=== PATIENT | male | born 1965 | race American Indian/Alaskan Native ===

== ENCOUNTER 2016-11-12 19:57 | Inpatient (IN) | payer OTHER ==
[2016-11-12] MEDS ORDERED: Sodium Chloride 0.9% 1,000 ML IV STA (20:34)
--- NOTE | 2016-11-12 20:38 | ED PDOC ---
Arrival/HPI - General Historian: Patient - History of Present Illness Time/Duration: Prior to Arrival, 1/2 hour Symptom Onset: Sudden - General Chief Complaint: GI Problem Time Seen by Provider: 11/12/16 20:02 - History of Present Illness Narrative History of Present Illness (Text): 11/12/16 20:33 This is a 50 year old male with no significant PMHx presenting after a bout of hematemesis. Patient reports that this has never happened before. Patient states that he used to experience dyspepsia many years ago which has since calmed down; however, he recently started eating hot sauce in his food again. Patient denies abdominal pain, changes in stool character, dark stools. Patient is not currently nauseous. Patient states that his vomit contained food with blood mixed in. Patient was recently told by his physician that he was anemic. Patient denies dizziness, lightheadedness, weakness. PMD: Dr. Hampton ([facility]) Past Medical History - Provider Review Nursing Documentation Reviewed: Yes - Cardiac Hx Cardiac Disorders: No - Pulmonary Hx Respiratory Disorders: No - Neurological Hx Neurological Disorder: No - HEENT Hx HEENT Disorder: No - Renal Hx Renal Disorder: No - Endocrine/Metabolic Hx Endocrine Disorders: No - Hematological/Oncological Hx Blood Disorders: No - Integumentary Hx Dermatological Disorder: No - Musculoskeletal/Rheumatological Hx Musculoskeletal Disorders: Yes - Gastrointestinal Hx Gastrointestinal Disorders: No - Genitourinary/Gynecological Hx Genitourinary Disorders: No - Psychiatric Hx Psychophysiologic Disorder: No Hx Substance Use: Yes (marijuana) - Surgical History Hx Orthopedic Surgery: Yes (left hip has metal) Family/Social History - Physician Review Nursing Documentation Reviewed: Yes Family/Social History: No Known Family HX Smoking Status: Light Smoker < 10 Cigarettes Daily Hx Alcohol Use: No Hx Substance Use: Yes (marijuana) Allergies/Home Meds Allergies/Adverse Reactions: Allergies aspirin Allergy (Verified 11/12/16 20:04) ANAPHYLAXIS Home Medications: Home Meds Medication Instructions Recorded Confirmed oxyCODONE/Acetaminophen [Percocet 1 tab PO PRN PRN 11/12/16 11/12/16 5/325 mg Tab] Review of Systems - Review of Systems Constitutional: Normal Eyes: Normal ENT: Normal Respiratory: Normal Cardiovascular: Normal Gastrointestinal: Vomiting, Hematemesis. absent: Abdominal Pain, Stool Changes , Constipation, Diarrhea, Nausea, Hematochezia Genitourinary Male: Normal Musculoskeletal: Normal Skin: Normal Neurological: Normal. absent: Dizziness, Focal Weakness, Other (lightheadedness ) Endocrine: Normal Hemo/Lymphatic: Normal Psychiatric: Normal Physical Exam Vital Signs Reviewed: Yes Temperature: Afebrile Blood Pressure: Normal Pulse: Regular Respiratory Rate: Normal Appearance: Positive for: Well-Appearing Pain Distress: None Mental Status: Positive for: Alert and Oriented X 3 - Systems Exam Head: Present: Atraumatic, Normocephalic Pupils: Present: PERRL Extroacular Muscles: Present: EOMI Mouth: Present: Moist Mucous Membranes Neck: Present: Normal Range of Motion Respiratory/Chest: Present: Clear to Auscultation, Good Air Exchange. No: Accessory Muscle Use Cardiovascular: Present: Regular Rate and Rhythm, Normal S1, S2 Abdomen: Present: Normal Bowel Sounds. No: Tenderness, Distention Rectal: Present: Occult Blood, Melena. No: Hemorrhoids, Fissures Upper Extremity: Present: Normal Inspection, NORMAL PULSES. No: Edema Lower Extremity: Present: Normal Inspection, NORMAL PULSES. No: Edema, CALF TENDERNESS Neurological: Present: GCS=15, CN II-XII Intact Skin: Present: Warm, Dry, Normal Color. No: Rashes Psychiatric: Present: Alert, Oriented x 3 Medical Decision Making ED Course and Treatment: 11/12/16 20:43 CBC, CMP, Coag, Amylase, Lipase, EKG, Cardiac ISO, UA, Type and screen Zofran 4 mg IV Protonix 40 mg IV NS 1L bolus EKG showed NSR at rate 92 11/12/16 22:26 Patient consented for blood and 2 units of PRBCs ordered. Patient admitted to hospitalist service with Dr. Tamayo on for GI consult. (Jeff Daley) Impression: In agreement with resident note, which includes further HPI details. Patient was seen and evaluated with resident, came up with plan and treatment together. Pt, with no significant past medical history, presented for 1 episode of hematemesis. melana in emergency room. pt anemia. transfision intiiated. discussed with gi fellow covering dr tamayo. request npo for possible endoscopy. stabel for tele. Plan: -- EKG -- Labs, cardiac enzymes, amylase, lipase, blood type and screen -- Urinalysis -- IV fluids -- Zofran -- Protonix -- Reassess and disposition (Jefferson Novoa) - Lab Interpretations Lab Results: 11/12/16 21:00 11/12/16 21:00 Lab Results 11/12/16 21:00: Iron 58, TIBC 292, % Saturation 20 11/12/16 21:00: Blood Type O POSITIVE, Antibody Screen Negative, Crossmatch See Detail, BBK History Checked No verified bt 11/12/16 21:00: Sodium 141, Potassium 3.6, Chloride 105, Carbon Dioxide 29, Anion Gap 11, BUN 17, Creatinine 0.8, Est GFR ( Amer) > 60, Est GFR (Non- Af Amer) > 60, Random Glucose 103, Calcium 8.4, Total Bilirubin 0.2, AST 21, ALT 21, Alkaline Phosphatase 51, Lactate Dehydrogenase 393, Total Creatine Kinase 41, Troponin I < 0.01, Total Protein 5.9, Albumin 3.3, Globulin 2.6, Albumin/Globulin Ratio 1.3, Amylase 49, Lipase 47 11/12/16 21:00: PT 11.3, INR 1.05, APTT 24.4 11/12/16 21:00: WBC 13.3 H, RBC 3.21 L, Hgb 9.3 L, Hct 29.1 L, MCV 90.7, MCH 29.0, MCHC 32.0, RDW 13.3, Plt Count 293, MPV 8.1, Gran % 76.1 H, Lymph % (Auto ) 17.9 L, Long % (Auto) 5.3, Eos % (Auto) 0.5 L, Baso % (Auto) 0.2, Gran # 10.10 H, Lymph # 2.4, Long # 0.7 H, Eos # 0.1, Baso # 0.03 - Medication Orders Current Medication Orders: Pantoprazole Sodium (Protonix 40mg Ivpb) 40 mg in 100 mls @ 20 mls/hr IVPB .Q5H DAVID Last Admin: 11/13/16 02:57 Dose: Sodium Chloride (Sodium Chloride 0.9%) 1,000 mls @ 100 mls/hr IV .Q10H DAVID Last Admin: 11/13/16 00:02 Dose: 100 mls/hr Ondansetron HCl (Zofran Inj) 4 mg IVP Q4H PRN PRN Reason: Nausea/Vomiting Oxycodone/Acetaminophen (Percocet 5/325 Mg Tab) 1 tab PO Q4H PRN PRN Reason: Pain, moderate (4-7) Stop: 11/15/16 23:29 Last Admin: 11/12/16 23:43 Dose: 1 tab Re-Assess: BOB Pain Assessment Document 11/13/16 00:43 [facility] (Rec: 11/13/16 04:19 [facility] [id number]) Pain Reassessment Is this a pain reassessment? Yes Presence of Pain Presence of Pain No Pantoprazole Sodium (Protonix Inj) 40 mg IVP Q12 DAVID Last Admin: 11/12/16 23:23 Dose: 40 mg Discontinued Medications Sodium Chloride (Sodium Chloride 0.9%) 1,000 mls @ 999 mls/hr IV .Q1H1M STA Stop: 11/12/16 21:34 Last Admin: 11/12/16 21:07 Dose: 999 mls/hr Ondansetron HCl (Zofran Inj) 4 mg IVP STAT STA Stop: 11/12/16 20:35 Last Admin: 11/12/16 21:07 Dose: 4 mg Pantoprazole Sodium (Protonix Inj) 40 mg IVP STAT STA Stop: 11/12/16 20:35 Last Admin: 11/12/16 21:07 Dose: 40 mg - PA / QUALITY NURSE / Resident Statement /DO has reviewed & agrees with the documentation as recorded. Disposition/Present on Arrival - Present on Arrival Any Indicators Present on Arrival: No History of DVT/PE: No History of Uncontrolled Diabetes: No Urinary Catheter: No History of Decub. Ulcer: No History Surgical Site Infection Following: None - Disposition Have Diagnosis and Disposition been Completed?: Yes Disposition Time: 22:15 - Disposition Diagnosis: GI bleed Disposition: HOSPITALIZED Patient Problems: Current Active Problems Problem Status Onset GI bleed Acute Condition: STABLE
[2016-11-12 21:21] LABS: BASO # 0.03 K/mm3 (0.0-2.0); BASO % 0.2 % (0.0-3.0); EOS # 0.1 (0.0-0.7); EOS % 0.5 % (1.5-5.0); GRAN # 10.1 (1.4-6.5); GRAN % 76.1 % (50.0-68.0); HEMATOCRIT 29.1 % (42.0-52.0); LYMPH # 2.4 (1.2-3.4); LYMPH % 17.9 % (22.0-35.0); MEAN CELL VOLUME 90.7 fl (80.0-105.0); MEAN PLATELET VOLUME 8.1 fl (7.0-11.0); MONO # 0.7 (0.1-0.6); MONO % 5.3 % (1.0-6.0); RED CELL DISTRIBUTION WIDTH 13.3 % (11.5-14.5); WHITE BLOOD COUNT 13.3 10^3/ul (4.5-11.0)
[2016-11-12 21:27] LABS: ALB/GLOB RATIO 1.3 (1.1-1.8); ALKALINE PHOSPHATASE 51 U/L (38-126); ALT/SGPT 21 U/L (7-56); AMYLASE 49 U/L (35-125); AST/SGOT 21 U/L (17-59); BILIRUBIN,TOTAL 0.2 mg/dL (0.2-1.3); BLOOD UREA NITROGEN 17 mg/dL (7-21); CALCIUM 8.4 mg/dL (8.4-10.5); CARBON DIOXIDE 29 mmol/L (21-33); CHLORIDE 105 mmol/L (98-107); GFR AFRICAN-AMERICAN > 60; GLUCOSE,RANDOM 103 mg/dL (70-110); LIPASE 47 U/L (23-300); POTASSIUM 3.6 mmol/L (3.6-5.0); SODIUM 141 mmol/L (132-148); TOTAL PROTEIN 5.9 g/dL (5.8-8.3)
[2016-11-12 21:29] LABS: INR 1.05 (0.93-1.08); PARTIAL THROMBOPLASTIN TIME 24.4 Seconds (23.7-30.8)
[2016-11-12 21:42] LABS: TROPONIN I < 0.01 ng/mL
[2016-11-12 22:34] LABS: IRON 58 ug/dL (45-180)
--- NOTE | 2016-11-12 23:19 | CP.PCM.HP ---
<ROBBLAMAR - Last Filed: 11/12/16 23:10> History of Present Illness - History of Present Illness History of Present Illness: Lamar Potts, PGY1, H&P for Dr. Monterroso: CC: hematemesis x1 HPI: 50 M with no significant PMH presents for hematemesis x1. He had the episode this afternoon, 2 hours after eating his regular meal (german rice and beans), vomited food and some bright red blood, denies associated nausea, abdominal pain, rectal bleeding, change in bowel habits, constipation/diarrhea, dyspepsia, dizziness, lightheadedness, dizziness. Pt c/o some mild diaphoresis with the episode, + dark brown stools for the past few days. In ED, pt afebrile , HR 89, hemodynamically stable, leukocytosis 13.3, hgb 9.3 (unknown baseline), mcv 90.7, nrml lipase, rectal exam showed + stool guaic, received zofran 4 mg IVx1, protonix 40 mg IVx1, 1L NS bolus, transfusing 2 units prbcs. Currently, pt denies any nausea, vomiting, further episodes of hematemesis, cp, sob, diaphroesis, palpitations, cough, wheezing, urinary symptoms, leg swelling. Meds: omeprazole, percocet for L hip pain PMD: Dr Hampton (visited last week) PMH: Denies PSH: L sided hip surgery- [place] [facility] [place] All: ASA (eye swelling) FH: Mother, , heart blockage Father, HTN SH: lives with son. Mario. Smokes 6 cigg/day x 22 years. Smokes marijuana occasionally. Denies alcohol use. Present on Admission - Present on Admission Any Indicators Present on Admission: No History of DVT/PE: No History of Uncontrolled Diabetes: No Urinary Catheter: No Decubitus Ulcer Present: No History Surgical Site Infection Following: None Review of Systems - Review of Systems All systems: reviewed and no additional remarkable complaints except Review of Systems: as per hpi Past Patient History - Past Social History Smoking Status: Light Smoker < 10 Cigarettes Daily - CARDIAC Hx Cardiac Disorders: No - PULMONARY Hx Respiratory Disorders: No - NEUROLOGICAL Hx Neurological Disorder: No - HEENT Hx HEENT Problems: No - RENAL Hx Chronic Kidney Disease: No - ENDOCRINE/METABOLIC Hx Endocrine Disorders: No - HEMATOLOGICAL/ONCOLOGICAL Hx Blood Disorders: No - INTEGUMENTARY Hx Dermatological Problems: No - MUSCULOSKELETAL/RHEUMATOLOGICAL Hx Musculoskeletal Disorders: Yes - GASTROINTESTINAL Hx Gastrointestinal Disorders: No - GENITOURINARY/GYNECOLOGICAL Hx Genitourinary Disorders: No - PSYCHIATRIC Hx Psychophysiologic Disorder: No Hx Substance Use: Yes (marijuana) - SURGICAL HISTORY Hx Orthopedic Surgery: Yes (left hip has metal) Meds Allergies/Adverse Reactions: Allergies Allergy/AdvReac Type Severity Reaction Status Date / Time aspirin Allergy ANAPHYLAXIS Verified 11/12/16 20:04 Physical Exam - Constitutional Appears: Non-toxic, No Acute Distress, Older Than Stated Age - Head Exam Head Exam: ATRAUMATIC, NORMOCEPHALIC - Eye Exam Eye Exam: EOMI, PERRL. absent: Conjunctival injection, Periorbital swelling, Scleral icterus Pupil Exam: NORMAL ACCOMODATION, PERRL. absent: Irregular, Unequal Additional comments: no conjunctival pallor - ENT Exam ENT Exam: Mucous Membranes Moist, Normal Oropharynx - Neck Exam Neck exam: Positive for: Normal Inspection. Negative for: Lymphadenopathy, Tenderness, Thyromegaly - Respiratory Exam Respiratory Exam: Decreased Breath Sounds, NORMAL BREATHING PATTERN. absent: Accessory Muscle Use, Rales, Rhonchi, Wheezes - Cardiovascular Exam Cardiovascular Exam: RRR, +S1, +S2. absent: Tachycardia, JVD, Systolic Murmur - GI/Abdominal Exam GI & Abdominal Exam: Distended, Normal Bowel Sounds, Soft. absent: Guarding, Organomegaly, Rebound, Rigid, Tenderness - Rectal Exam Rectal Exam: Black Stool, NORMAL INSPECTION. absent: Hemorrhoids, Fecal Impaction Additional comments: Good external anal sphincter tone, no discharge/masses/induration. + dark black stool on exam. - Extremities Exam Extremities exam: Positive for: normal capillary refill, normal inspection, pedal pulses present. Negative for: calf tenderness, pedal edema Additional comments: no palmor pallor - Back Exam Back exam: absent: CVA tenderness (L), CVA tenderness (R), vertebral tenderness - Neurological Exam Neurological exam: Alert, CN II-XII Intact, Oriented x3, Reflexes Normal - Psychiatric Exam Psychiatric exam: Normal Mood - Skin Skin Exam: Dry, Warm Results - Vital Signs Recent Vital Signs: Last Vital Signs Temp 98 F 11/12/16 20:00 Pulse 92 H 11/12/16 22:34 Resp 18 09/07/17 22:34 BP 138/71 11/12/16 22:34 Pulse Ox 100 11/12/16 22:34 - Labs Result Diagrams: 11/12/16 21:00 11/12/16 21:00 Assessment & Plan - Assessment and Plan (Free Text) Assessment: 50M with no PMH presents for GI bleed, anemia, leukocytosis. Plan: GI bleed: - NPO, IVF, Protonix, GI c/s - Zofran - Stool guaic + on rectal exam - GI c/s, f/u recs. will likely go for endoscopy - Hgb 9.3 (unknown baseline), MCV 90.7, pt diagnosed with anemia a week ago with PMD Dr Hampton. - denies weakness, sob, fatigue. C/o 1 episode of hematemesis this afternoon and dark brown stools for past couple of days. - f/u anemia workup Decreased breath sounds: - f/u CXR. denies sob, cough, f/c, wheezing, lung disease history. + smoking hx 6 cigg/d x 22 years. Leukocytosis: - denies f/c. F/u blood and urine cultures, UA. Procal. Chronic L hip pain: - C/w home percocet DVT ppx: SCDs GI PPX: Protonix Discussed with Dr. Loc Potts, PGY1 - Date & Time Date: 11/13/16 Time: 01:00 <Dina Monterroso - Last Filed: 11/13/16 06:45> Results - Vital Signs Recent Vital Signs: Last Vital Signs Temp 98.5 F 11/13/16 06:20 Pulse 88 11/13/16 06:20 Resp 20 11/13/16 06:20 BP 118/64 11/13/16 06:20 Pulse Ox 99 11/13/16 06:00 - Labs Result Diagrams: 11/12/16 21:00 11/12/16 21:00 Labs: Laboratory Results - last 24 hr 11/12/16 22:12 Blood Type Confirm O POSITIVE
[2016-11-12] MEDS: Oxycodone/Acetaminophen 5/325 mg Tab PO PRN (23:43)
[2016-11-13] MEDS: Pantoprazole 40mg/100ml IVPB 40 MG/100 ML BAG IVPB SCH ×5 (00:02→21:47)
[2016-11-13] MEDS: Sodium Chloride 0.9% 1,000 ML IV SCH ×3 (00:02→12:25)
[2016-11-13] MEDS: Morphine 2 mg/ml ISec IVP PRN ×2 (04:49→12:23)
[2016-11-13 08:26] LABS: PH,URINE 5.5 (4.7-8.0); URINE BILIRUBIN NEGATIVE (NEGATIVE); URINE BLOOD NEGATIVE (NEGATIVE); URINE GLUCOSE (UA) NEGATIVE (NEGATIVE); URINE KETONE NEGATIVE (NEGATIVE); URINE LEUKOCYTE ESTERASE SMALL Leu/uL (NEGATIVE); URINE PROTEIN TRACE mg/dL (<30 mg/dL); URINE UROBILINOGEN 0.2 E.U./dL (<1 E.U./dL)
[2016-11-13 08:27] LABS: URINE APPEARANCE SL CLOUDY (CLEAR); URINE COLOR YELLOW (YELLOW)
--- NOTE | 2016-11-13 08:36 | CP.PCM.CON ---
<Melanie Feliz - Last Filed: 11/13/16 10:48> History of Present Illness - History of Present Illness History of Present Illness: Gastroenterology Fellow/PGY5 Consult Note 50 year old male with history of bowel obstruction with NGT decompression 2-3 months ago in [place] and chronic left hip pain on Percocet presenting with vomiting blood and black stool. Patient notes sudden onset of nausea, cold chills followed by vomiting a large volume of food and bright red blood and having a black stool. Notes he felt well all week prior to this episode. Denies fever, chills, sweats, abdominal pain, diarrhea, constipation, hematochezia, or unintentional weight loss. Denies NSAID use. No prior EGD or colonoscopy. Family-denies stomach cancer or colon cancer Social- 6 cigarettes/day x 22 years, denies alcohol and illicit drug use Surgery- left hip ORIF 2-3 years ago Review of Systems - Review of Systems Review of Systems: 12-point review of systems negative except for as above Past Patient History - Past Social History Smoking Status: Light Smoker < 10 Cigarettes Daily - CARDIAC Hx Cardiac Disorders: No - PULMONARY Hx Respiratory Disorders: No - NEUROLOGICAL Hx Neurological Disorder: No - HEENT Hx HEENT Problems: No - RENAL Hx Chronic Kidney Disease: No - ENDOCRINE/METABOLIC Hx Endocrine Disorders: No - HEMATOLOGICAL/ONCOLOGICAL Hx Blood Disorders: No - INTEGUMENTARY Hx Dermatological Problems: No - MUSCULOSKELETAL/RHEUMATOLOGICAL Hx Falls: No - GASTROINTESTINAL Hx Gastrointestinal Disorders: No - GENITOURINARY/GYNECOLOGICAL Hx Genitourinary Disorders: No - PSYCHIATRIC Hx Substance Use: No - SURGICAL HISTORY Hx Orthopedic Surgery: Yes (Left hip surgery) Meds Allergies/Adverse Reactions: Allergies Allergy/AdvReac Type Severity Reaction Status Date / Time aspirin Allergy ANAPHYLAXIS Verified 11/12/16 20:04 - Medications Medications: Current Medications Sodium Chloride (Sodium Chloride 0.9%) 1,000 mls @ 100 mls/hr IV .Q10H DAVID Last Admin: 11/13/16 00:02 Dose: 100 mls/hr Morphine Sulfate (Morphine) 2 mg IVP Q4H PRN PRN Reason: Pain, moderate (4-7) Last Admin: 11/13/16 04:49 Dose: 2 mg Ondansetron HCl (Zofran Inj) 4 mg IVP Q4H PRN PRN Reason: Nausea/Vomiting Oxycodone/Acetaminophen (Percocet 5/325 Mg Tab) 1 tab PO Q4H PRN PRN Reason: Pain, moderate (4-7) Stop: 11/15/16 23:29 Last Admin: 11/12/16 23:43 Dose: 1 tab Pantoprazole Sodium (Protonix Inj) 40 mg IVP Q12 DAVID Last Admin: 11/12/16 23:23 Dose: 40 mg Physical Exam - Constitutional Appears: Non-toxic, No Acute Distress - Head Exam Head Exam: ATRAUMATIC, NORMOCEPHALIC - Eye Exam Eye Exam: EOMI, PERRL Pupil Exam: PERRL. absent: Miosis, Mydriatic - ENT Exam ENT Exam: Mucous Membranes Moist, Normal Oropharynx - Neck Exam Neck exam: Positive for: Full Rom, Normal Inspection - Respiratory Exam Respiratory Exam: Clear to Auscultation Bilateral. absent: Rales, Rhonchi, Wheezes - Cardiovascular Exam Cardiovascular Exam: RRR, +S1, +S2. absent: Gallop, Rubs - GI/Abdominal Exam GI & Abdominal Exam: Normal Bowel Sounds. absent: Distended, Firm, Guarding, Organomegaly, Rebound, Rigid, Tenderness - Rectal Exam Rectal Exam: Black Stool - Extremities Exam Extremities exam: Positive for: normal inspection. Negative for: pedal edema - Back Exam Back exam: NORMAL INSPECTION - Neurological Exam Neurological exam: Alert, Oriented x3 - Psychiatric Exam Psychiatric exam: Normal Affect, Normal Mood - Skin Skin Exam: Dry, Intact, Normal Color, Warm Results - Vital Signs Recent Vital Signs: Last Vital Signs Temp 98.5 F 11/13/16 06:20 Pulse 77 11/13/16 08:15 Resp 20 11/13/16 06:20 BP 123/63 11/13/16 08:15 Pulse Ox 99 11/13/16 06:00 - Labs Result Diagrams: 11/12/16 21:00 11/12/16 21:00 Labs: Laboratory Results - last 24 hr 11/12/16 11/13/16 22:12 08:00 Urine Color Yellow Urine Appearance Sl cloudy Urine pH 5.5 Ur Specific [place] 1.025 Urine Protein Trace H Urine Glucose (UA) Negative Urine Ketones Negative Urine Blood Negative Urine Nitrate Negative Urine Bilirubin Negative Urine Urobilinogen 0.2 Ur Leukocyte Esterase Small H Blood Type Confirm O POSITIVE Assessment & Plan - Assessment and Plan (Free Text) Assessment: 50 year old male with history of bowel obstruction with NGT decompression 2-3 months ago in [place] and chronic left hip pain on Percocet presenting with vomiting blood and black stool. Active treatment of suspected Upper GI bleed. No prior EGD or colonoscopy. Plan: >NPO >EGD today >received 1 unit pRBC >no further episodes of overt GI blood loss >continue PPI BID >further recommendations after procedure <Onel Hernandez - Last Filed: 11/13/16 10:52> Meds - Medications Medications: Current Medications Sodium Chloride (Sodium Chloride 0.9%) 1,000 mls @ 100 mls/hr IV .Q10H DAVID Last Admin: 11/13/16 00:02 Dose: 100 mls/hr Pantoprazole Sodium (Protonix 40mg Ivpb) 40 mg in 100 mls @ 20 mls/hr IVPB .Q5H DAIVD Sodium Chloride (Sodium Chloride 0.9%) 1,000 mls @ 100 mls/hr IV .Q10H DAVID Morphine Sulfate (Morphine) 2 mg IVP Q4H PRN PRN Reason: Pain, moderate (4-7) Last Admin: 11/13/16 04:49 Dose: 2 mg Ondansetron HCl (Zofran Inj) 4 mg IVP Q4H PRN PRN Reason: Nausea/Vomiting Oxycodone/Acetaminophen (Percocet 5/325 Mg Tab) 1 tab PO Q4H PRN PRN Reason: Pain, moderate (4-7) Stop: 11/15/16 23:29 Last Admin: 11/12/16 23:43 Dose: 1 tab Results - Vital Signs Recent Vital Signs: Last Vital Signs Temp 98.6 F 11/13/16 09:54 Pulse 75 11/13/16 09:54 Resp 17 11/13/16 09:54 BP 112/70 11/13/16 09:54 Pulse Ox 100 11/13/16 09:54 - Labs Result Diagrams: 11/13/16 09:25 11/12/16 21:00 Labs: Laboratory Results - last 24 hr 11/12/16 11/13/16 11/13/16 22:12 08:00 09:25 WBC 7.5 D RBC 3.11 L Hgb 9.0 L Hct 27.8 L MCV 89.4 MCH 28.9 MCHC 32.4 RDW 13.5 Plt Count 259 MPV 8.1 Gran % 59.9 Lymph % (Auto) 32.4 [place] % (Auto) 6.2 H Eos % (Auto) 1.2 L Baso % (Auto) 0.3 Gran # 4.51 Lymph # 2.4 [place] # 0.5 Eos # 0.1 Baso # 0.02 Urine Color Yellow Urine Appearance Sl cloudy Urine pH 5.5 Ur Specific [place] 1.025 Urine Protein Trace H Urine Glucose (UA) Negative Urine Ketones Negative Urine Blood Negative Urine Nitrate Negative Urine Bilirubin Negative Urine Urobilinogen 0.2 Ur Leukocyte Esterase Small H Urine RBC Negative Urine WBC 10 - 15 Ur Epithelial Cells 3 - 4 Urine Other Mucus Blood Type Confirm O POSITIVE Attending/Attestation - Attestation I have personally seen and examined this patient.: Yes I have fully participated in the care of the patient.: Yes I have reviewed all pertinent clinical information: Yes Notes (Text): 11/13/16 10:49 I have seen and examined patient with GI fellow. Agree with above documentation with the following additions. In brief, this is a 50 year old male with history of chronic hip pain on percocet who presents to hospital with complaint of hematemesis which occurred yesterday at home while he was watching television. He felt fatigued and weak for the past 7 days but denies abdominal pain, fever/chills, weight loss, or rectal bleeding. He does report dark colored stool over the past day. He denies NSAID use, no prior endoscopic evaluation. Chronic hip pain Hematemesis - unclear etiology Anemia - NPO - H/H stable, no recurrent vomiting noted in hospital, continue to monitor - Anti-emetic therapy PRN - Plan for EGD evaluation to rule out peptic ulcer disease, esophagitis, underlying malignancy - Will continue to monitor patient clinical course and make further recommendations following endoscopic procedure
[2016-11-13 08:40] LABS: URINE RBC NEGATIVE /hpf (0-2)
[2016-11-13 09:32] LABS: BASO # 0.02 K/mm3 (0.0-2.0); BASO % 0.3 % (0.0-3.0); EOS # 0.1 (0.0-0.7); EOS % 1.2 % (1.5-5.0); GRAN # 4.51 (1.4-6.5); GRAN % 59.9 % (50.0-68.0); HEMATOCRIT 27.8 % (42.0-52.0); LYMPH # 2.4 (1.2-3.4); LYMPH % 32.4 % (22.0-35.0); MEAN CELL VOLUME 89.4 fl (80.0-105.0); MEAN CORPUSCULAR HEMOGLOBIN 28.9 pg (25.0-35.0); MEAN CORPUSCULAR HGB CONC 32.4 g/dl (31.0-37.0); MEAN PLATELET VOLUME 8.1 fl (7.0-11.0); MONO # 0.5 (0.1-0.6); MONO % 6.2 % (1.0-6.0); RED CELL DISTRIBUTION WIDTH 13.5 % (11.5-14.5); WHITE BLOOD COUNT 7.5 10^3/ul (4.5-11.0)
[2016-11-13] MEDS ORDERED: Propofol 10 mg/ml Inj (20 ML) ONE ×3 (09:54→10:17)
[2016-11-13 11:10] LABS: ALB/GLOB RATIO 1.2 (1.1-1.8); ALKALINE PHOSPHATASE 49 U/L (38-126); ALT/SGPT 27 U/L (7-56); AST/SGOT 32 U/L (17-59); BILIRUBIN,TOTAL 0.4 mg/dL (0.2-1.3); BLOOD UREA NITROGEN 14 mg/dL (7-21); CALCIUM 8.4 mg/dL (8.4-10.5); CARBON DIOXIDE 26 mmol/L (21-33); CHLORIDE 106 mmol/L (98-107); GFR AFRICAN-AMERICAN > 60; GLUCOSE,RANDOM 85 mg/dL (70-110); SODIUM 138 mmol/L (132-148); TOTAL PROTEIN 5.5 g/dL (5.8-8.3)
--- NOTE | 2016-11-13 12:06 | RAD ---
HISTORY: decreased breath sounds COMPARISON: None. FINDINGS: LUNGS: No active pulmonary disease. PLEURA: No significant pleural effusion identified, no pneumothorax apparent. CARDIOVASCULAR: Normal. OSSEOUS STRUCTURES: No significant abnormalities. VISUALIZED UPPER ABDOMEN: Normal. OTHER FINDINGS: None. IMPRESSION: No active disease.
[2016-11-13 13:33] LABS: FOLATE 9.6 ng/mL
--- NOTE | 2016-11-13 14:08 | CP.PCM.PN ---
<Jersey Rodriges - Last Filed: 11/13/16 14:20> Subjective - Date & Time of Evaluation Date of Evaluation: 11/13/16 Time of Evaluation: 10:05 - Subjective Subjective: This patient was seen and examined at bedside. The patient was was placed on NPO and had a EGD done by GI today. The patient reports one bowel movement and denies any blood present. The patient denies any nausea, vomiting, chest pain, shortness of breath, lightheadedness, dizziness, changes in vision, or any other complaints. Objective - Vital Signs/Intake and Output Vital Signs (last 24 hours): Temp Pulse Resp BP Pulse Ox 97.9 F 76 20 121/66 100 11/13/16 12:00 11/13/16 12:00 11/13/16 12:00 11/13/16 12:00 11/13/16 11:30 Intake and Output: 11/13/16 11/13/16 06:59 18:59 Intake Total 1380 Balance 1380 - Medications Medications: Current Medications Sodium Chloride (Sodium Chloride 0.9%) 1,000 mls @ 100 mls/hr IV .Q10H [facility] Last Admin: 11/13/16 12:24 Dose: 100 mls/hr Pantoprazole Sodium (Protonix 40mg Ivpb) 40 mg in 100 mls @ 20 mls/hr IVPB .Q5H [facility] Last Admin: 11/13/16 12:24 Dose: 20 mls/hr Sodium Chloride (Sodium Chloride 0.9%) 1,000 mls @ 100 mls/hr IV .Q10H [facility] Last Admin: 11/13/16 12:25 Dose: Not Given Morphine Sulfate (Morphine) 2 mg IVP Q4H PRN PRN Reason: Pain, moderate (4-7) Last Admin: 11/13/16 12:23 Dose: 2 mg Ondansetron HCl (Zofran Inj) 4 mg IVP Q4H PRN PRN Reason: Nausea/Vomiting Oxycodone/Acetaminophen (Percocet 5/325 Mg Tab) 1 tab PO Q4H PRN PRN Reason: Pain, moderate (4-7) Stop: 11/15/16 23:29 Last Admin: 11/12/16 23:43 Dose: 1 tab - Labs Labs: 11/13/16 09:25 11/13/16 07:24 PT 11.3 Seconds (9.9-11.8) 11/12/16 21:00 INR 1.05 (0.93-1.08) 11/12/16 21:00 APTT 24.4 Seconds (23.7-30.8) 11/12/16 21:00 - Head Exam Head Exam: ATRAUMATIC, NORMAL INSPECTION, NORMOCEPHALIC - Eye Exam Eye Exam: EOMI, Normal appearance, PERRL Pupil Exam: NORMAL ACCOMODATION, PERRL. absent: Irregular - ENT Exam ENT Exam: Mucous Membranes Moist - Neck Exam Neck Exam: Normal Inspection - Respiratory Exam Respiratory Exam: Clear to Ausculation Bilateral, NORMAL BREATHING PATTERN - Cardiovascular Exam Cardiovascular Exam: REGULAR RHYTHM, RRR, +S1, +S2. absent: Rubs - GI/Abdominal Exam GI & Abdominal Exam: Soft, Normal Bowel Sounds. absent: Rigid, Tenderness - Extremities Exam Extremities Exam: Full ROM, Normal Inspection - Back Exam Back Exam: NORMAL INSPECTION. absent: paraspinal tenderness - Psychiatric Exam Psychiatric exam: Normal Affect, Normal Mood - Skin Skin Exam: Dry, Intact, Normal Color. absent: Urticaria, Vesicles Assessment and Plan - Assessment and Plan (Free Text) Assessment: 50M with no PMH presents for GI bleed, anemia, leukocytosis. Plan: GI bleed: -Continue NPO, IVF, Protonix -Continue Zofran -Stool guaic + on rectal exam -GI did an EGD today which showed a duodenal bulb ulcer. Patient is to remain NPO due to high risk of re-bleed. Patient will be re-evaluated tomorrow. -GI consult appreciated considered -Hgb 9.0 (down from 9.3),pt diagnosed with anemia a week ago with PMD Dr Hampton. -Patient hemo-dynamically stable: BP 110/64, 72hr, 97.9F, 16 RR. Decreased breath sounds: - CXR showed no active pulmonary disease. - denies sob, cough, f/c, wheezing, lung disease history. + smoking hx 6 cigg/d x 22 years. -Couseled patient on marijuana use and strongly advised him to decrease his usage. Leukocytosis: - WBC count 7.5. Resolved. -Blood culture and urine culture pending. Chronic L hip pain: -C/w home percocet -Advised patient to find a Orthopedist and Pain Management doctor that takes Medicare and to follow up as an outpatient. DVT ppx: SCDs GI PPX: Protonix <Lina Monterroso B - Last Filed: 11/13/16 17:25> Objective - Vital Signs/Intake and Output Vital Signs (last 24 hours): Temp Pulse Resp BP Pulse Ox 97.9 F 75 20 121/66 100 11/13/16 12:00 11/13/16 14:00 11/13/16 12:00 11/13/16 12:00 11/13/16 11:30 Intake and Output: 11/13/16 11/13/16 06:59 18:59 Intake Total 1380 0 Output Total 200 Balance 1380 -200 - Medications Medications: Current Medications Sodium Chloride (Sodium Chloride 0.9%) 1,000 mls @ 100 mls/hr IV .Q10H [facility] Last Admin: 11/13/16 12:24 Dose: 100 mls/hr Pantoprazole Sodium (Protonix 40mg Ivpb) 40 mg in 100 mls @ 20 mls/hr IVPB .Q5H [facility] Last Admin: 11/13/16 16:58 Dose: 20 mls/hr Sodium Chloride (Sodium Chloride 0.9%) 1,000 mls @ 100 mls/hr IV .Q10H [facility] Last Admin: 11/13/16 12:25 Dose: Not Given Morphine Sulfate (Morphine) 2 mg IVP Q4H PRN PRN Reason: Pain, moderate (4-7) Last Admin: 11/13/16 12:23 Dose: 2 mg Ondansetron HCl (Zofran Inj) 4 mg IVP Q4H PRN PRN Reason: Nausea/Vomiting Oxycodone/Acetaminophen (Percocet 5/325 Mg Tab) 1 tab PO Q4H PRN PRN Reason: Pain, moderate (4-7) Stop: 11/15/16 23:29 Last Admin: 11/12/16 23:43 Dose: 1 tab - Labs Labs: 11/13/16 09:25 11/13/16 07:24 PT 11.3 Seconds (9.9-11.8) 11/12/16 21:00 INR 1.05 (0.93-1.08) 11/12/16 21:00 APTT 24.4 Seconds (23.7-30.8) 11/12/16 21:00 Attending/Attestation - Attestation I have personally seen and examined this patient.: Yes I have fully participated in the care of the patient.: Yes I have reviewed all pertinent clinical information, including history, physical exam and plan: Yes Notes (Text): I have seen and examined the patient with the resident. Agree with the above note with the following additions/ exceptions: Briefly this is 50 year old male with history of chronic hip pain on percocet who presented with one episode of [place] hematemesis which occurred 1 day ago at home and also has been having dark stools. FOBT was positive. Hb was 9 and is s/p 1unit of prbc. He underwent EGD and found to have duodenal bulb ulcer and also had visible non bleeding vessel s/p cautery and clip was placed. GI recommended to keep the patient NPO and start protonix drip. He will be closely monitored for bleeding. He was counselled regarding tobacco and marijuana use. He also complains of chronic hip pain. Advised to follow up with orthopedics and pain management as an outpatient. Upon discharge patient will follow up with PMD of choice. Dr Lina Monterroso
--- NOTE | 2016-11-13 21:01 | CARD ---
APPROVED REPORT EKG Measurement Heart [id number] <Conclusion> Normal sinus rhythm with sinus arrhythmia Nonspecific T wave abnormality Abnormal ECG
[2016-11-13] MEDS ORDERED: Oxycodone/Acetaminophen 5/325 mg Tab PO STA (22:55)
[2016-11-14] MEDS: Pantoprazole 40mg/100ml IVPB 40 MG/100 ML BAG IVPB SCH ×6 (04:03→22:07)
[2016-11-14 07:26] LABS: BASO # 0.01 K/mm3 (0.0-2.0); BASO % 0.1 % (0.0-3.0); EOS # 0.1 (0.0-0.7); EOS % 1.6 % (1.5-5.0); GRAN # 4.53 (1.4-6.5); GRAN % 61.7 % (50.0-68.0); HEMATOCRIT 27.6 % (42.0-52.0); LYMPH # 2.3 (1.2-3.4); LYMPH % 30.7 % (22.0-35.0); MEAN CELL VOLUME 89.3 fl (80.0-105.0); MEAN CORPUSCULAR HEMOGLOBIN 28.8 pg (25.0-35.0); MEAN CORPUSCULAR HGB CONC 32.2 g/dl (31.0-37.0); MEAN PLATELET VOLUME 8.3 fl (7.0-11.0); MONO # 0.4 (0.1-0.6); MONO % 5.9 % (1.0-6.0); RED CELL DISTRIBUTION WIDTH 13.8 % (11.5-14.5); WHITE BLOOD COUNT 7.3 10^3/ul (4.5-11.0)
--- NOTE | 2016-11-14 10:37 | CP.PCM.PN ---
Subjective - Date & Time of Evaluation Date of Evaluation: 11/14/16 Time of Evaluation: 10:33 - Subjective Subjective: Patient seen and examined, resting in bed comfortably. No acute events overnight. He describes ongoing right sided hip pain but denies abdominal pain , nausea, vomiting, diarrhea, fever/chills. He is hungry and asking for diet to be advanced. No bowel movements overnight. 12 point review of systems performed, negative aside from mentioned above. Objective - Vital Signs/Intake and Output Vital Signs (last 24 hours): Temp Pulse Resp BP Pulse Ox 98.7 F 77 19 96/50 L 94 L 11/14/16 06:00 11/14/16 06:00 11/14/16 06:00 11/14/16 06:00 11/14/16 06:00 Intake and Output: 11/14/16 11/14/16 06:59 18:59 Intake Total 2130 Output Total 600 Balance 1530 - Medications Medications: Current Medications Pantoprazole Sodium (Protonix 40mg Ivpb) 40 mg in 100 mls @ 20 mls/hr IVPB .Q5H [facility] Last Admin: 11/14/16 04:03 Dose: 20 mls/hr Sodium Chloride (Sodium Chloride 0.9%) 1,000 mls @ 150 mls/hr IV .Q6H40M [facility] Ondansetron HCl (Zofran Inj) 4 mg IVP Q4H PRN PRN Reason: Nausea/Vomiting Oxycodone/Acetaminophen (Percocet 5/325 Mg Tab) 1 tab PO Q4H PRN PRN Reason: Pain, moderate (4-7) Stop: 11/15/16 23:29 Last Admin: 11/12/16 23:43 Dose: 1 tab - Labs Labs: 11/14/16 07:00 11/13/16 07:24 PT 11.3 Seconds (9.9-11.8) 11/12/16 21:00 INR 1.05 (0.93-1.08) 11/12/16 21:00 APTT 24.4 Seconds (23.7-30.8) 11/12/16 21:00 - Constitutional Appears: Non-toxic, No Acute Distress - Head Exam Head Exam: NORMAL INSPECTION - Eye Exam Eye Exam: EOMI, Normal appearance - ENT Exam ENT Exam: Mucous Membranes Moist - Respiratory Exam Respiratory Exam: Clear to Ausculation Bilateral - Cardiovascular Exam Cardiovascular Exam: REGULAR RHYTHM, +S1, +S2 - GI/Abdominal Exam GI & Abdominal Exam: Soft, Normal Bowel Sounds Additional comments: non tender to palpation in four quadrants - Extremities Exam Extremities Exam: Normal Inspection - Skin Skin Exam: Dry, Intact, Normal Color, Warm Assessment and Plan - Assessment and Plan (Free Text) Assessment: Chronic hip pain Hematemesis, s/p EGD showing large duodenal bulb ulcer with visible vessel s/p epinephrine, BICAP, and endoclip placement Plan: - Clear liquid diet as tolerated - H/H stable, continue to monitor - Continue with IV PPI infusion for additional 24 hours - Obtain stool hpylori antigen - Would eventually suggest CT imaging with PO contrast for further evaluation given prior history of bowel obstruction
[2016-11-14] MEDS: Sodium Chloride 0.9% 1,000 ML IV SCH ×4 (11:23→21:30)
--- NOTE | 2016-11-14 11:53 | CP.PCM.PN ---
<ZahiraSumitBristol - Last Filed: 11/14/16 11:58> Subjective - Date & Time of Evaluation Date of Evaluation: 11/14/16 Time of Evaluation: 09:34 - Subjective Subjective: Patient was seen and examined at bedside. The patient reports being hungry and wanting to eat. The patient also reports the chronic left hip discomfort. The patient denies any bowel movement overnight. Patient denies any reports of hematemesis. The patient denies any fevers, chills, nausea, vomiting, chest pain, shortness of breath, lightheadedness, dizziness, pain upon urination, or any other complaints. Objective - Vital Signs/Intake and Output Vital Signs (last 24 hours): Temp Pulse Resp BP Pulse Ox 98.7 F 87 19 96/50 L 94 L 11/14/16 06:00 11/14/16 10:00 11/14/16 06:00 11/14/16 06:00 11/14/16 06:00 Intake and Output: 11/14/16 11/14/16 06:59 18:59 Intake Total 2130 Output Total 600 Balance 1530 - Medications Medications: Current Medications Pantoprazole Sodium (Protonix 40mg Ivpb) 40 mg in 100 mls @ 20 mls/hr IVPB .Q5H [facility] Last Admin: 11/14/16 11:20 Dose: 20 mls/hr Sodium Chloride (Sodium Chloride 0.9%) 1,000 mls @ 150 mls/hr IV .Q6H40M [facility] Last Admin: 11/14/16 11:23 Dose: 150 mls/hr Ondansetron HCl (Zofran Inj) 4 mg IVP Q4H PRN PRN Reason: Nausea/Vomiting Oxycodone/Acetaminophen (Percocet 5/325 Mg Tab) 1 tab PO Q4H PRN PRN Reason: Pain, moderate (4-7) Stop: 11/15/16 23:29 Last Admin: 11/12/16 23:43 Dose: 1 tab - Labs Labs: 11/14/16 07:00 11/13/16 07:24 PT 11.3 Seconds (9.9-11.8) 11/12/16 21:00 INR 1.05 (0.93-1.08) 11/12/16 21:00 APTT 24.4 Seconds (23.7-30.8) 11/12/16 21:00 - Head Exam Head Exam: ATRAUMATIC, NORMAL INSPECTION, NORMOCEPHALIC - Eye Exam Eye Exam: EOMI, Normal appearance, PERRL Pupil Exam: NORMAL ACCOMODATION, PERRL. absent: Irregular - ENT Exam ENT Exam: Mucous Membranes Moist, Normal Exam - Neck Exam Neck Exam: Full ROM, Normal Inspection - Respiratory Exam Respiratory Exam: Clear to Ausculation Bilateral, NORMAL BREATHING PATTERN. absent: Accessory Muscle Use, Chest Wall Tenderness, Prolonged Expiratory Phase - Cardiovascular Exam Cardiovascular Exam: REGULAR RHYTHM, RRR, +S1, +S2. absent: Gallop, Rubs - GI/Abdominal Exam GI & Abdominal Exam: Soft, Normal Bowel Sounds. absent: Rigid, Tenderness - Extremities Exam Extremities Exam: Full ROM, Normal Inspection - Back Exam Back Exam: NORMAL INSPECTION. absent: paraspinal tenderness - Neurological Exam Neurological Exam: Alert, Awake, CN II-XII Intact, Oriented x3 - Psychiatric Exam Psychiatric exam: Normal Affect, Normal Mood - Skin Skin Exam: Dry, Intact, Normal Color. absent: Pallor Assessment and Plan - Assessment and Plan (Free Text) Assessment: 50M with no PMH presents for GI bleed, anemia, leukocytosis. Plan: GI bleed: -Patient diet advanced to clear liquid diet. Will continue to advance as tolerated per GI consult. -Continue IVF, Protonix -Continue Zofran -Stool guaic + on rectal exam -GI did an EGD yesterday which showed a duodenal bulb ulcer. -GI consult appreciated considered -H.pylori stool antigen pending. -Hgb 8.9 (down from 9.0),pt diagnosed with anemia a week ago with PMD Dr Hampton. Will continue to monitor H/H with serial CBC's. -Patient hemo-dynamically stable: BP 110/64, 72hr, 97.9F, 16 RR. Decreased breath sounds: - CXR showed no active pulmonary disease. - denies sob, cough, f/c, wheezing, lung disease history. + smoking hx 6 cigg/d x 22 years. -Couseled patient on marijuana use and strongly advised him to decrease his usage. Leukocytosis: - WBC count normal. Resolved. -Blood culture: no growth after 24 hours and urine culture still pending. Chronic L hip pain: -C/w home percocet -Advised patient to find a Orthopedist and Pain Management doctor that takes Medicare and to follow up as an outpatient. DVT ppx: SCDs GI PPX: Protonix <Wilton Epps MD - Last Filed: 11/17/16 16:08> Objective - Vital Signs/Intake and Output Vital Signs (last 24 hours): Temp Pulse Resp BP Pulse Ox 98.5 F 68 17 95/53 L 98 11/15/16 12:00 11/15/16 14:00 11/15/16 12:00 11/15/16 12:00 11/15/16 06:00 - Labs Labs: 11/15/16 07:10 11/13/16 07:24 PT 11.3 Seconds (9.9-11.8) 11/12/16 21:00 INR 1.05 (0.93-1.08) 11/12/16 21:00 APTT 24.4 Seconds (23.7-30.8) 11/12/16 21:00 Attending/Attestation - Attestation I have personally seen and examined this patient.: Yes I have fully participated in the care of the patient.: Yes I have reviewed all pertinent clinical information, including history, physical exam and plan: Yes Notes (Text): 11/17/16 16:07 Patient was seen and examined with hospital medical biller. Agreed with resident assessment and plan. 50 yrs old male was admitted with hematemesis, s/p EGD showing large duodenal bulb ulcer with visible vessel s/p epinephrine, BICAP, and endoclip placement, will start on clear liquid diet and monitor hemoglobin and hematocrit. Management plan was discussed in detail with patient Education was provided.
[2016-11-14] MEDS: Oxycodone/Acetaminophen 5/325 mg Tab PO PRN ×3 (12:52→23:06)
[2016-11-14 13:21] LABS: BASO # 0.02 K/mm3 (0.0-2.0); BASO % 0.2 % (0.0-3.0); EOS # 0.1 (0.0-0.7); EOS % 0.9 % (1.5-5.0); GRAN # 5.91 (1.4-6.5); GRAN % 66.3 % (50.0-68.0); HEMATOCRIT 30.6 % (42.0-52.0); LYMPH # 2.5 (1.2-3.4); LYMPH % 28.4 % (22.0-35.0); MEAN CELL VOLUME 90.3 fl (80.0-105.0); MEAN CORPUSCULAR HEMOGLOBIN 29.2 pg (25.0-35.0); MEAN CORPUSCULAR HGB CONC 32.4 g/dl (31.0-37.0); MONO # 0.4 (0.1-0.6); MONO % 4.2 % (1.0-6.0); RED CELL DISTRIBUTION WIDTH 13.8 % (11.5-14.5); WHITE BLOOD COUNT 8.9 10^3/ul (4.5-11.0)
[2016-11-14 22:35] LABS: BASO # 0.03 K/mm3 (0.0-2.0); BASO % 0.4 % (0.0-3.0); EOS # 0.2 (0.0-0.7); EOS % 2.2 % (1.5-5.0); GRAN # 4.07 (1.4-6.5); HEMATOCRIT 26.2 % (42.0-52.0); LYMPH # 2.9 (1.2-3.4); LYMPH % 38.2 % (22.0-35.0); MEAN CELL VOLUME 89.4 fl (80.0-105.0); MEAN CORPUSCULAR HEMOGLOBIN 29.4 pg (25.0-35.0); MEAN CORPUSCULAR HGB CONC 32.8 g/dl (31.0-37.0); MEAN PLATELET VOLUME 7.9 fl (7.0-11.0); MONO # 0.5 (0.1-0.6); MONO % 6.2 % (1.0-6.0); RED CELL DISTRIBUTION WIDTH 13.8 % (11.5-14.5); WHITE BLOOD COUNT 7.7 10^3/ul (4.5-11.0)
[2016-11-15] MEDS: Pantoprazole 40mg/100ml IVPB 40 MG/100 ML BAG IVPB SCH (04:00)
[2016-11-15] MEDS: Oxycodone/Acetaminophen 5/325 mg Tab PO PRN ×3 (04:15→14:36)
[2016-11-15 06:32] VITALS: O2SAT 98
[2016-11-15 07:20] LABS: BASO # 0.03 K/mm3 (0.0-2.0); BASO % 0.4 % (0.0-3.0); EOS # 0.2 (0.0-0.7); GRAN # 4.4 (1.4-6.5); GRAN % 57.7 % (50.0-68.0); HEMATOCRIT 28.7 % (42.0-52.0); LYMPH # 2.6 (1.2-3.4); LYMPH % 34.1 % (22.0-35.0); MEAN CELL VOLUME 89.1 fl (80.0-105.0); MEAN CORPUSCULAR HEMOGLOBIN 29.2 pg (25.0-35.0); MEAN CORPUSCULAR HGB CONC 32.8 g/dl (31.0-37.0); MEAN PLATELET VOLUME 7.8 fl (7.0-11.0); MONO # 0.4 (0.1-0.6); MONO % 5.8 % (1.0-6.0); RED CELL DISTRIBUTION WIDTH 13.6 % (11.5-14.5); WHITE BLOOD COUNT 7.6 10^3/ul (4.5-11.0)
[2016-11-15] MEDS: Sodium Chloride 0.9% 1,000 ML IV SCH ×2 (07:30→10:59)
--- NOTE | 2016-11-15 08:15 | CP.PCM.PN ---
Subjective - Date & Time of Evaluation Date of Evaluation: 11/15/16 Time of Evaluation: 08:11 - Subjective Subjective: Patient seen and examined. No acute events overnight, resting in bed comfortably. No bowel movements over past 48 hours. He denies abdominal pain, nausea, vomiting, fever/chills. Tolerating PO liquids without difficulty. Complains of R sided hip pain. 12 point review of systems performed, negative aside from mentioned above. Objective - Vital Signs/Intake and Output Vital Signs (last 24 hours): Temp Pulse Resp BP Pulse Ox 97.7 F 78 18 129/82 98 11/15/16 06:00 11/15/16 06:00 11/15/16 06:00 11/15/16 06:00 11/15/16 06:00 Intake and Output: 11/15/16 11/15/16 06:59 18:59 Intake Total 680 Output Total 1400 Balance -720 - Medications Medications: Current Medications Sodium Chloride (Sodium Chloride 0.9%) 1,000 mls @ 150 mls/hr IV .Q6H40M [facility] Last Admin: 11/15/16 07:30 Dose: 150 mls/hr Ondansetron HCl (Zofran Inj) 4 mg IVP Q4H PRN PRN Reason: Nausea/Vomiting Oxycodone/Acetaminophen (Percocet 5/325 Mg Tab) 1 tab PO Q4H PRN PRN Reason: Pain, moderate (4-7) Stop: 11/15/16 23:29 Last Admin: 11/15/16 04:15 Dose: 1 tab Pantoprazole Sodium (Protonix Ec Tab) 40 mg PO 0600,1600 [facility] Sucralfate (Carafate Tab) 1 gm PO 0600,1600 [facility] - Labs Labs: 11/15/16 07:10 11/13/16 07:24 PT 11.3 Seconds (9.9-11.8) 11/12/16 21:00 INR 1.05 (0.93-1.08) 11/12/16 21:00 APTT 24.4 Seconds (23.7-30.8) 11/12/16 21:00 - Constitutional Appears: Non-toxic, No Acute Distress - Head Exam Head Exam: NORMAL INSPECTION - Eye Exam Eye Exam: EOMI, Normal appearance - ENT Exam ENT Exam: Mucous Membranes Moist - Respiratory Exam Respiratory Exam: Clear to Ausculation Bilateral - Cardiovascular Exam Cardiovascular Exam: REGULAR RHYTHM, +S1, +S2 - GI/Abdominal Exam GI & Abdominal Exam: Soft, Normal Bowel Sounds Additional comments: non tender to palpation in four quadrants - Extremities Exam Extremities Exam: Normal Inspection - Skin Skin Exam: Dry, Intact, Normal Color, Warm Assessment and Plan - Assessment and Plan (Free Text) Assessment: Chronic right hip pain Anemia, duodenal ulcer s/p endoscopic therapy with epinephrine, BICAP, and endoclip placement Plan: - H/H stable, patient has not required PRBC transfusion, continue to monitor - Continue with PPI and carafate regimen - Obtain stool Hpylori - Advance diet to soft as tolerated - Obtain CT imaging with PO contrast given duodenal ulcer and prior history of bowel obstruction in [place] - Patient requesting hospital discharge, ok from GI perspective if patient tolerating PO diet, he will require subsequent outpatient follow up.
[2016-11-15 15:08] VITALS: BP 95/53; RESP 17; TEMP 98.5
--- NOTE | 2016-11-15 15:09 | CT ---
PROCEDURE: CT Abdomen and Pelvis without intravenous contrast HISTORY: duodenal ulcer, h/o bowel obstruction COMPARISON: None. TECHNIQUE: Without contrast.. Contrast Dose: Radiation dose: Total exam DLP = 351 mGy-cm. This CT exam was performed using one or more of the following dose reduction techniques: Automated exposure control, adjustment of the mA and/or kV according to patient size, and/or use of iterative reconstruction technique. FINDINGS: LOWER THORAX: Unremarkable. LIVER: Unremarkable. No gross lesion or ductal dilatation. GALLBLADDER AND BILE DUCTS: Unremarkable. PANCREAS: Unremarkable. No gross lesion or ductal dilatation. SPLEEN: Unremarkable. ADRENALS: Unremarkable. No mass. KIDNEYS AND URETERS: Unremarkable. No hydronephrosis. No solid mass. VASCULATURE: Unremarkable. No aortic aneurysm. BOWEL: Unremarkable. No obstruction. No gross mural thickening. A surgical clip is seen in the transverse colon. APPENDIX: Unremarkable. Normal appendix. PERITONEUM: Unremarkable. No free fluid. No free air. LYMPH NODES: Unremarkable. No enlarged lymph nodes. BLADDER: Unremarkable. REPRODUCTIVE: Unremarkable. BONES: No acute fracture. OTHER FINDINGS: None. IMPRESSION: No acute findings
[2016-11-15] MEDS ORDERED: Pantoprazole 40 mg EC Tab PO SCH (16:00)
[2016-11-15 16:19] VITALS: PULSE 68
--- NOTE | 2016-11-15 16:44 | CP.PCM.DIS ---
<Jersey Rodriges - Last Filed: 11/15/16 16:47> Provider - Provider Date of Admission: 11/12/16 21:44 Attending physician: Isaura Tan MD Time Spent in preparation of Discharge (in minutes): 45 Hospital Course - Lab Results Lab Results: Micro Results 11/13/16 09:25 Blood-Venous Blood Culture - Preliminary NO GROWTH AFTER 48 HOURS 11/12/16 23:50 Blood-Venous Blood Culture - Preliminary NO GROWTH AFTER 48 HOURS Most Recent Lab Values WBC 7.6 10^3/ul (4.5-11.0) 11/15/16 07:10 RBC 3.22 10^6/uL (3.5-6.1) L 11/15/16 07:10 Hgb 9.4 g/dL (14.0-18.0) L 11/15/16 07:10 Hct 28.7 % (42.0-52.0) L 11/15/16 07:10 MCV 89.1 fl (80.0-105.0) 11/15/16 07:10 MCH 29.2 pg (25.0-35.0) 11/15/16 07:10 MCHC 32.8 g/dl (31.0-37.0) 11/15/16 07:10 RDW 13.6 % (11.5-14.5) 11/15/16 07:10 Plt Count 236 10^3/uL (120.0-450.0) 11/15/16 07:10 MPV 7.8 fl (7.0-11.0) 11/15/16 07:10 Gran % 57.7 % (50.0-68.0) 11/15/16 07:10 Lymph % (Auto) 34.1 % (22.0-35.0) 11/15/16 07:10 [place] % (Auto) 5.8 % (1.0-6.0) 11/15/16 07:10 Eos % (Auto) 2.0 % (1.5-5.0) 11/15/16 07:10 Baso % (Auto) 0.4 % (0.0-3.0) 11/15/16 07:10 Gran # 4.40 (1.4-6.5) 11/15/16 07:10 Lymph # 2.6 (1.2-3.4) 11/15/16 07:10 [place]ern # 0.4 (0.1-0.6) 11/15/16 07:10 Eos # 0.2 (0.0-0.7) 11/15/16 07:10 Baso # 0.03 K/mm3 (0.0-2.0) 11/15/16 07:10 PT 11.3 Seconds (9.9-11.8) 11/12/16 21:00 INR 1.05 (0.93-1.08) 11/12/16 21:00 APTT 24.4 Seconds (23.7-30.8) 11/12/16 21:00 Sodium 138 mmol/L (132-148) 11/13/16 07:24 Potassium 4.0 mmol/L (3.6-5.0) 11/13/16 07:24 Chloride 106 mmol/L (98-107) 11/13/16 07:24 Carbon Dioxide 26 mmol/L (21-33) 11/13/16 07:24 Anion Gap 10 (10-20) 11/13/16 07:24 BUN 14 mg/dL (7-21) 11/13/16 07:24 Creatinine 0.7 mg/dL (0.5-1.4) 11/13/16 07:24 Est GFR ( Amer) > 60 11/13/16 07:24 Est GFR (Non-Af Amer) > 60 11/13/16 07:24 Random Glucose 85 mg/dL (70-110) 11/13/16 07:24 Calcium 8.4 mg/dL (8.4-10.5) 11/13/16 07:24 Iron 58 ug/dL (45-180) 11/12/16 21:00 TIBC 292 ug/dL (261-462) 11/12/16 21:00 % Saturation 20 % (20-55) 11/12/16 21:00 Ferritin 37.5 ng/mL 11/12/16 21:00 Total Bilirubin 0.4 mg/dL (0.2-1.3) 11/13/16 07:24 AST 32 U/L (17-59) 11/13/16 07:24 ALT 27 U/L (7-56) 11/13/16 07:24 Alkaline Phosphatase 49 U/L (38-126) 11/13/16 07:24 Lactate Dehydrogenase 393 U/L (333-699) 11/12/16 21:00 Total Creatine Kinase 41 U/L (35-230) 11/12/16 21:00 Troponin I < 0.01 ng/mL 11/12/16 21:00 Total Protein 5.5 g/dL (5.8-8.3) L 11/13/16 07:24 Albumin 3.0 g/dL (3.0-4.8) 11/13/16 07:24 Globulin 2.5 gm/dL 11/13/16 07:24 Albumin/Globulin Ratio 1.2 (1.1-1.8) 11/13/16 07:24 Amylase 49 U/L (35-125) 11/12/16 21:00 Lipase 47 U/L (23-300) 11/12/16 21:00 Vitamin B12 316 pg/mL (239-931) 11/12/16 21:00 Folate 9.6 ng/mL 11/12/16 21:00 Procalcitonin < 0.05 NG/ML (0.19-0.49) L 11/12/16 23:50 Urine Color Yellow (YELLOW) 11/13/16 08:00 Urine Appearance Sl cloudy (CLEAR) 11/13/16 08:00 Urine pH 5.5 (4.7-8.0) 11/13/16 08:00 Ur Specific [place] 1.025 (1.005-1.035) 11/13/16 08:00 Urine Protein Trace mg/dL (<30 mg/dL) H 11/13/16 08:00 Urine Glucose (UA) Negative mg/dL (NEGATIVE) 11/13/16 08:00 Urine Ketones Negative mg/dL (NEGATIVE) 11/13/16 08:00 Urine Blood Negative (NEGATIVE) 11/13/16 08:00 Urine Nitrate Negative (NEGATIVE) 11/13/16 08:00 Urine Bilirubin Negative (NEGATIVE) 11/13/16 08:00 Urine Urobilinogen 0.2 E.U./dL (<1 E.U./dL) 11/13/16 08:00 Ur Leukocyte Esterase Small [place]/uL (NEGATIVE) H 11/13/16 08:00 Urine RBC Negative /hpf (0-2) 11/13/16 08:00 Urine WBC 10 - 15 /hpf (0-6) 11/13/16 08:00 Ur Epithelial Cells 3 - 4 /hpf (0-5) 11/13/16 08:00 Urine Other Mucus 11/13/16 08:00 Blood Type O POSITIVE 11/12/16 21:00 Blood Type Confirm O POSITIVE 11/12/16 22:12 Antibody Screen Negative 11/12/16 21:00 Crossmatch See Detail 11/12/16 21:00 BBK History Checked No verified bt 11/12/16 21:00 - Hospital Course Hospital Course: 50 M with no significant PMH presents for hematemesis x1. He had the episode this afternoon, 2 hours after eating his regular meal (armenian rice and beans), vomited food and some bright red blood, denies associated nausea, abdominal pain , rectal bleeding, change in bowel habits, constipation/diarrhea, dyspepsia, dizziness, lightheadedness, dizziness. Pt c/o some mild diaphoresis with the episode, + dark brown stools for the past few days. In ED, pt afebrile, HR 89, hemodynamically stable, leukocytosis 13.3, hgb 9.3 (unknown baseline), mcv 90.7 , nrml lipase, rectal exam showed + stool guaic, received zofran 4 mg IVx1, protonix 40 mg IVx1, 1L NS bolus, transfusing 2 units prbcs. Patient was seen by GI consult and had a EGD done which showed an duodenal bulb ulcer. The ulcer was clipped and the bleeding stopped. Patients diet was tolerated as clear and then as soft diet. The patient was discharged with a plan to follow up with PMD and GI doctor within one week of discharge. Discharge Exam - Head Exam Head Exam: NORMAL INSPECTION - Eye Exam Eye Exam: EOMI, Normal appearance, PERRL Pupil Exam: NORMAL ACCOMODATION, PERRL - ENT Exam ENT Exam: Mucous Membranes Moist - Respiratory Exam Respiratory Exam: Clear to PA & Lateral, NORMAL BREATHING PATTERN, UNREMARKABLE. absent: Rhonchi, Wheezes - Cardiovascular Exam Cardiovascular Exam: REGULAR RHYTHM, RRR, +S1, +S2. absent: Rubs - GI/Abdominal Exam GI & Abdominal Exam: Normal Bowel Sounds, Unremarkable. absent: Firm, Guarding - Back Exam Back exam: NORMAL INSPECTION. absent: paraspinal tenderness - Neurological Exam Neurological exam: Alert, Oriented x3 - Psychiatric Exam Psychiatric exam: Normal Affect, Normal Mood - Skin Skin Exam: Dry, Intact Discharge Plan - Discharge Medications Prescriptions: Pantoprazole [Protonix EC Tab] 40 mg PO 0600,1600 #60 ect Sucralfate [Carafate Tab] 1 gm PO 0600,1600 #60 tab - Follow Up Plan Condition: STABLE Disposition: HOME/ ROUTINE Instructions: Gastrointestinal Bleeding (DC), Heart Healthy Diet (DC), Blood Transfusion (DC), Anemia (DC) Additional Instructions: 1. Follow up with [facility] clinic or PMD DR. Memo Cano in 5 days. 2. Avoid smoking, alcohol and Pain medications/NSAID. 3. Continue protonix. 4. Follow up with GI Dr. Hernandez in 1 week. Referrals: Onel Hernandez MD [Staff Provider] - <Isaura Tan - Last Filed: 11/16/16 19:11> Provider - Provider Date of Admission: 11/12/16 21:44 Attending physician: Isaura Tan MD Hospital Course - Lab Results Lab Results: Micro Results 11/13/16 09:25 Blood-Venous Blood Culture - Preliminary NO GROWTH AFTER 3 DAYS 11/12/16 23:50 Blood-Venous Blood Culture - Preliminary NO GROWTH AFTER 3 DAYS Most Recent Lab Values WBC 7.6 10^3/ul (4.5-11.0) 11/15/16 07:10 RBC 3.22 10^6/uL (3.5-6.1) L 11/15/16 07:10 Hgb 9.4 g/dL (14.0-18.0) L 11/15/16 07:10 Hct 28.7 % (42.0-52.0) L 11/15/16 07:10 MCV 89.1 fl (80.0-105.0) 11/15/16 07:10 MCH 29.2 pg (25.0-35.0) 11/15/16 07:10 MCHC 32.8 g/dl (31.0-37.0) 11/15/16 07:10 RDW 13.6 % (11.5-14.5) 11/15/16 07:10 Plt Count 236 10^3/uL (120.0-450.0) 11/15/16 07:10 MPV 7.8 fl (7.0-11.0) 11/15/16 07:10 Gran % 57.7 % (50.0-68.0) 11/15/16 07:10 Lymph % (Auto) 34.1 % (22.0-35.0) 11/15/16 07:10 [place] % (Auto) 5.8 % (1.0-6.0) 11/15/16 07:10 Eos % (Auto) 2.0 % (1.5-5.0) 11/15/16 07:10 Baso % (Auto) 0.4 % (0.0-3.0) 11/15/16 07:10 Gran # 4.40 (1.4-6.5) 11/15/16 07:10 Lymph # 2.6 (1.2-3.4) 11/15/16 07:10 [place] # 0.4 (0.1-0.6) 11/15/16 07:10 Eos # 0.2 (0.0-0.7) 11/15/16 07:10 Baso # 0.03 K/mm3 (0.0-2.0) 11/15/16 07:10 PT 11.3 Seconds (9.9-11.8) 11/12/16 21:00 INR 1.05 (0.93-1.08) 11/12/16 21:00 APTT 24.4 Seconds (23.7-30.8) 11/12/16 21:00 Sodium 138 mmol/L (132-148) 11/13/16 07:24 Potassium 4.0 mmol/L (3.6-5.0) 11/13/16 07:24 Chloride 106 mmol/L (98-107) 11/13/16 07:24 Carbon Dioxide 26 mmol/L (21-33) 11/13/16 07:24 Anion Gap 10 (10-20) 11/13/16 07:24 BUN 14 mg/dL (7-21) 11/13/16 07:24 Creatinine 0.7 mg/dL (0.5-1.4) 11/13/16 07:24 Est GFR ( Amer) > 60 11/13/16 07:24 Est GFR (Non-Af Amer) > 60 11/13/16 07:24 Random Glucose 85 mg/dL (70-110) 11/13/16 07:24 Calcium 8.4 mg/dL (8.4-10.5) 11/13/16 07:24 Iron 58 ug/dL (45-180) 11/12/16 21:00 TIBC 292 ug/dL (261-462) 11/12/16 21:00 % Saturation 20 % (20-55) 11/12/16 21:00 Ferritin 37.5 ng/mL 11/12/16 21:00 Total Bilirubin 0.4 mg/dL (0.2-1.3) 11/13/16 07:24 AST 32 U/L (17-59) 11/13/16 07:24 ALT 27 U/L (7-56) 11/13/16 07:24 Alkaline Phosphatase 49 U/L (38-126) 11/13/16 07:24 Lactate Dehydrogenase 393 U/L (333-699) 11/12/16 21:00 Total Creatine Kinase 41 U/L (35-230) 11/12/16 21:00 Troponin I < 0.01 ng/mL 11/12/16 21:00 Total Protein 5.5 g/dL (5.8-8.3) L 11/13/16 07:24 Albumin 3.0 g/dL (3.0-4.8) 11/13/16 07:24 Globulin 2.5 gm/dL 11/13/16 07:24 Albumin/Globulin Ratio 1.2 (1.1-1.8) 11/13/16 07:24 Amylase 49 U/L (35-125) 11/12/16 21:00 Lipase 47 U/L (23-300) 11/12/16 21:00 Vitamin B12 316 pg/mL (239-931) 11/12/16 21:00 Folate 9.6 ng/mL 11/12/16 21:00 Procalcitonin < 0.05 NG/ML (0.19-0.49) L 11/12/16 23:50 Urine Color Yellow (YELLOW) 11/13/16 08:00 Urine Appearance Sl cloudy (CLEAR) 11/13/16 08:00 Urine pH 5.5 (4.7-8.0) 11/13/16 08:00 Ur Specific [place] 1.025 (1.005-1.035) 11/13/16 08:00 Urine Protein Trace mg/dL (<30 mg/dL) H 11/13/16 08:00 Urine Glucose (UA) Negative mg/dL (NEGATIVE) 11/13/16 08:00 Urine Ketones Negative mg/dL (NEGATIVE) 11/13/16 08:00 Urine Blood Negative (NEGATIVE) 11/13/16 08:00 Urine Nitrate Negative (NEGATIVE) 11/13/16 08:00 Urine Bilirubin Negative (NEGATIVE) 11/13/16 08:00 Urine Urobilinogen 0.2 E.U./dL (<1 E.U./dL) 11/13/16 08:00 Ur Leukocyte Esterase Small [place]/uL (NEGATIVE) H 11/13/16 08:00 Urine RBC Negative /hpf (0-2) 11/13/16 08:00 Urine WBC 10 - 15 /hpf (0-6) 11/13/16 08:00 Ur Epithelial Cells 3 - 4 /hpf (0-5) 11/13/16 08:00 Urine Other Mucus 11/13/16 08:00 Blood Type O POSITIVE 11/12/16 21:00 Blood Type Confirm O POSITIVE 11/12/16 22:12 Antibody Screen Negative 11/12/16 21:00 Crossmatch See Detail 11/12/16 21:00 BBK History Checked No verified bt 11/12/16 21:00 Attending/Attestation - Attestation I have personally seen and examined this patient.: Yes I have fully participated in the care of the patient.: Yes I have reviewed all pertinent clinical information, including history, physical exam and plan: Yes Notes (Text): 11/16/16 19:08 Attending note ; Patient seen and examined with the resident . Patient is 50 year old male with history of chronic hip pain on percocet who presented with one episode of clinton hematemesis. FOBT was positive. Hb was 9 and is s/p 1unit of prbc. He underwent EGD and found to have duodenal bulb ulcer and also had visible non bleeding vessel s/p cautery and clip was placed. Treated with IV protonix drip. Currently no active bleeding. Started on clear liquid diet. Advance to soft diet today. Patient was evaluated by GI. Tolerating diet well. No abdominal pain. He was counselled regarding tobacco and marijuana use. He also complains of chronic hip pain. Advised to follow up with orthopedics and pain management as an outpatient. Upon discharge patient will follow up with PMD of choice. Diagnosis; GI bleed Duodenal ulcer status post cautery Tobacco abuse Chronic hip pain/opiate use
== END 2016-11-15 17:50 | disposition home or self-care (01) | DRG 175 ==
LOC: ED 19:57 → ERH 21:44 → 2RNO 11-13 00:15
PROVIDERS: ADMIT Internal Medicine; ATTEND Internal Medicine
PROC: 30233N1 Transfusion of Nonautologous Red Blood Cells into Peripheral Vein, Percutaneous Approach (ICD-10-PCS; 2016-11-13)
PROC: 0D598ZZ Destruction of Duodenum, Via Natural or Artificial Opening Endoscopic (ICD-10-PCS; principal; 2016-11-13 12:45)
PROC: 3E0G8GC Introduction of Other Therapeutic Substance into Upper GI, Via Natural or Artificial Opening Endoscopic (ICD-10-PCS; 2016-11-13 12:45)
PROC: 0DJ08ZZ Inspection of Upper Intestinal Tract, Via Natural or Artificial Opening Endoscopic (ICD-10-PCS; 2016-11-13 12:45)
DX: K92.0 Hematemesis (principal); K26.9 Duodenal ulcer, unspecified as acute or chronic, without hemorrhage or perforation; D64.9 Anemia, unspecified; F12.90 Cannabis use, unspecified, uncomplicated; M25.552 Pain in left hip; G89.29 Other chronic pain; D72.829 Elevated white blood cell count, unspecified; Z72.0 Tobacco use; Z88.6 Allergy status to analgesic agent

== ENCOUNTER 2016-12-14 07:08 | Emergency (ER) | payer MEDICAID ==
[2016-12-14 07:20] VITALS: TEMP 97.9
--- NOTE | 2016-12-14 07:53 | ED PDOC ---
Arrival/HPI - General Historian: Patient - History of Present Illness Time/Duration: < week Symptom Course: Unchanged Activities at Onset: Rest Context: Home - General Chief Complaint: Shortness Of Breath Time Seen by Provider: 12/14/16 07:12 - History of Present Illness Narrative History of Present Illness (Text): 12/14/16 07:50 51yo M PMH bowel obstruction with recent hospitalization for gastric ulcers who presents with hiccups and nausea/vomiting x2 days. pt denies any new foods, travel history, medication changes, sick contacts or recent illness, fevers/ chills, chest pain, cough. pt also has L hip pain from ortho surgery (chronic, for 2 years), for which he is on Lyrica and Tramadol. last BM was 2 days ago, but that is regular for him. PMD: currently doesn't have PMD till Jan 06 due to insurance. In past, has seen Dr. Hampton ([facility]) Past Medical History - Provider Review Nursing Documentation Reviewed: Yes - Past History Past History: Non-Contributing - Reproductive Currently : No - Past Medical History Past Medical History: No Previous - Cardiac Hx Cardiac Disorders: No - Pulmonary Hx Respiratory Disorders: No - Neurological Hx Neurological Disorder: No - HEENT Hx HEENT Disorder: No - Renal Hx Renal Disorder: No - Endocrine/Metabolic Hx Endocrine Disorders: No - Hematological/Oncological Hx Blood Disorders: No - Integumentary Hx Dermatological Disorder: No - Musculoskeletal/Rheumatological Hx Back Pain: Yes (chronic) Hx Falls: No - Gastrointestinal Hx Gastrointestinal Disorders: Yes - Genitourinary/Gynecological Hx Genitourinary Disorders: No - Psychiatric Hx Psychophysiologic Disorder: No Hx Substance Use: No - Surgical History Hx Orthopedic Surgery: Yes (Left hip surgery) - Anesthesia Hx Anesthesia Reactions: No Hx Malignant Hyperthermia: No Family/Social History - Physician Review Nursing Documentation Reviewed: Yes Family/Social History: No Known Family HX Smoking Status: Light Smoker < 10 Cigarettes Daily Hx Alcohol Use: No Hx Substance Use: No Allergies/Home Meds Allergies/Adverse Reactions: Allergies aspirin Allergy (Verified 11/12/16 20:04) ANAPHYLAXIS Home Medications: Home Meds Medication Instructions Recorded Confirmed oxyCODONE/Acetaminophen [Percocet 1 tab PO PRN PRN 11/12/16 11/12/16 5/325 mg Tab] Review of Systems - Physician Review All systems were reviewed & negative as marked: Yes - Review of Systems Constitutional: absent: Fevers Respiratory: absent: Cough, Wheezing Cardiovascular: absent: Chest Pain Gastrointestinal: Nausea, Vomiting. absent: Abdominal Pain, Constipation, Diarrhea, Hematochezia, Hematemesis Physical Exam Vital Signs Reviewed: Yes Appearance: Positive for: Well-Appearing Pain Distress: None Mental Status: Positive for: Alert and Oriented X 3 - Systems Exam Head: Present: Atraumatic, Normocephalic Pupils: Present: PERRL Extroacular Muscles: Present: EOMI Conjunctiva: Present: Normal Mouth: Present: Moist Mucous Membranes Neck: Present: Normal Range of Motion Respiratory/Chest: Present: Clear to Auscultation, Good Air Exchange. No: Respiratory Distress, Accessory Muscle Use, Wheezes Cardiovascular: Present: Regular Rate and Rhythm, Normal S1, S2. No: Murmurs Abdomen: Present: Tenderness (epigastric), Normal Bowel Sounds. No: Distention , Peritoneal Signs, Guarding Back: Present: Normal Inspection. No: CVA Tenderness Upper Extremity: Present: Normal Inspection, Normal ROM Lower Extremity: Present: Normal Inspection. No: Edema, CALF TENDERNESS, Pk' s Sign Neurological: Present: CN II-XII Intact, Speech Normal Skin: Present: Warm, Dry Psychiatric: Present: Alert, Oriented x 3 Vital Signs Temp Pulse Resp BP Pulse Ox 12/14/16 11:50 91 H 18 123/68 100 12/14/16 10:35 78 18 122/76 98 12/14/16 09:59 84 18 115/68 98 12/14/16 09:01 95 H 18 144/89 100 12/14/16 07:16 97.9 F 90 20 132/93 H 100 12/14/16 07:08 20 100 Medical Decision Making Re-evaluation Time: 12:31 Reassessment Condition: Re-examined, Improved - Lab Interpretations I have reviewed the lab results: Yes - RAD Interpretation Touring Production Manager: Radiologist - EKG Interpretation Interpreted by ED Physician: Yes Type: 12 lead EKG ED Course and Treatment: 12/14/16 07:58 Impression: 51yo M presenting with n/v and epigastric pain likely 2/2 gastritis Differential Diagnosis included but are not limited to: gastritis vs pancreatitis vs atypical chest pain Plan: - Reassess and disposition - CXR and abd XR - EKG - Labs - Lipase - Reglan - Pepcid Progress Notes: EKG: Ordered, reviewed, and independently interpreted the EKG. Rate : 94 BPM Rhythm : NSR Interpretation : No ST-segment elevations or depressions, no T-wave inversions, normal intervals. 12/14/16 08:06 Chart review from last admission's EGD showed a duodenal non-bleeding ulcer. 12/14/16 09:20 Reassessment: improved symptoms, but remains with hiccups. chlorpromazine 25mg IM ordered 12/14/16 12:18 Reassessment: pt feeling much better. denies any pain, n/v, and stating hiccups have improved. Chest XR Report Date : 12/14/2016 11:37:16 Creator : Roxi Hinojosa MD FINDINGS: LUNGS: The lungs are clear. PLEURA: No significant pleural effusion identified, no pneumothorax apparent. CARDIOVASCULAR: Normal. OSSEOUS STRUCTURES: No significant abnormalities. VISUALIZED UPPER ABDOMEN: Normal. OTHER FINDINGS: None. IMPRESSION: No active pulmonary disease. Abdominal XR Report Date : 12/14/2016 11:38:04 Creator : Roix Hinojosa MD FINDINGS: BOWEL: There is moderate amount of stool in the colon. The bowel gas pattern is nonspecific. BONES: Normal. OTHER FINDINGS: None. IMPRESSION: Nonspecific bowel gas pattern. 12/14/16 12:31 pt educated on follow up with PMD or establishing care at [facility] and taking medication as prescribed. (Angel Riddle) 12/14/16 10:42 Hawk Graves is a 51 year old male who presents to the emergency department with nausea, vomiting, and epigastric pain. The patient was seen and examined with resident. Came up with treatment and disposition plan with resident. Abdomen soft and not tender. ND. BSx4. Patient improved with medications. Labs reviewed. He will follow up with PMD or establish care with [facility] clinic. (Reynaldo Bailey) - Lab Interpretations Lab Results: 12/14/16 07:35 12/14/16 07:35 Lab Results 12/14/16 07:35: Sodium 144, Potassium 3.9, Chloride 102, Carbon Dioxide 28, Anion Gap 18, BUN 10, Creatinine 0.8, Est GFR ( Amer) > 60, Est GFR (Non- Af Amer) > 60, Random Glucose 123 H, Calcium 10.2, Phosphorus 3.1, Magnesium 2.1 , Total Bilirubin 0.7, AST 19, ALT 34, Alkaline Phosphatase 82, Total Protein 7.9, Albumin 4.8, Globulin 3.1, Albumin/Globulin Ratio 1.5, Lipase 67 12/14/16 07:35: WBC 11.6 H D, RBC 4.41, Hgb 12.7 L D, Hct 39.4 L, MCV 89.3, MCH 28.8, MCHC 32.2, RDW 13.2, Plt Count 309, MPV 8.6, Gran % 74.8 H, Lymph % (Auto ) 18.6 L, [place] % (Auto) 5.9, Eos % (Auto) 0.4 L, Baso % (Auto) 0.3, Gran # 8.68 H, Lymph # 2.2, [place] # 0.7 H, Eos # 0.1, Baso # 0.03 - RAD Interpretation Radiology Orders: 12/14/16 07:30 CHEST PORTABLE [RAD] Stat ABDOMEN PORTABLE 1 VIEW [RAD] Stat - Medication Orders Current Medication Orders: Discontinued Medications Acetaminophen (Tylenol 325mg Tab) 325 mg PO STAT STA Stop: 12/14/16 08:32 Last Admin: 12/14/16 08:58 Dose: 325 mg MAR Pain/Vitals Document 12/14/16 08:58 OK (Rec: 12/14/16 08:59 [id number] Pain Reassessment Is This A Pain ReAssessment? Yes Sleep Is patient sleeping during reassessment? No Presence of Pain Presence of Pain Yes Pain Scale Used Pain Scale Used Numeric Location Left, Right or Bilateral Left Pain Location Body Site Hip Description Intermittent Intensity 8 Scale Used Numeric Baclofen (Lioresal) 10 mg PO STAT STA Stop: 12/14/16 11:20 Last Admin: 12/14/16 12:24 Dose: Chlorpromazine (Thorazine) 25 mg IM STAT STA PRN Reason: Protocol Stop: 12/14/16 09:19 Last Admin: 12/14/16 09:55 Dose: 25 mg IM Administration Charges Document 12/14/16 09:55 OK (Rec: 12/14/16 09:56 [id number]) Injection Site MAR Injection Site Left Gluteus Ho Charges for Administration # of IM Administrations 1 Famotidine (Pepcid) 20 mg IVP STAT STA Stop: 12/14/16 07:50 Last Admin: 12/14/16 07:56 Dose: 20 mg IVP Administration Document 12/14/16 07:56 OK (Rec: 12/14/16 07:56 [id number]) Charges for Administration # of IVP Administrations 1 Metoclopramide HCl (Reglan) 10 mg IVP STAT STA Stop: 12/14/16 07:31 Last Admin: 12/14/16 07:56 Dose: 10 mg IVP Administration Document 12/14/16 07:56 OK (Rec: 12/14/16 07:56 [id number]) Charges for Administration # of IVP Administrations 1 Disposition/Present on Arrival - Present on Arrival Any Indicators Present on Arrival: No History of DVT/PE: No History of Uncontrolled Diabetes: No Urinary Catheter: No History of Decub. Ulcer: No History Surgical Site Infection Following: None - Disposition Have Diagnosis and Disposition been Completed?: Yes Disposition Time: 12:19 Patient Plan: Discharge - Disposition Diagnosis: Gastritis Disposition: HOME/ ROUTINE Condition: GOOD Discharge Instructions (ExitCare): Gastritis (ED) Additional Instructions: - take your medications nightly as prescribed - if you experience worsening of hiccups, nausea/vomiting, or trouble keeping food down, please return to ER for evaluation - please follow up at [facility] clinic within 1 week Prescriptions: Famotidine [Pepcid] 40 mg PO HS #30 tab Referrals: [facility] at [facility] [Outside] - Follow up with primary Forms: [employer] (Jordanian)
[2016-12-14 08:15] LABS: BASO # 0.03 K/mm3 (0.0-2.0); BASO % 0.3 % (0.0-3.0); EOS # 0.1 (0.0-0.7); EOS % 0.4 % (1.5-5.0); GRAN # 8.68 (1.4-6.5); GRAN % 74.8 % (50.0-68.0); HEMATOCRIT 39.4 % (42.0-52.0); LYMPH # 2.2 (1.2-3.4); LYMPH % 18.6 % (22.0-35.0); MEAN CELL VOLUME 89.3 fl (80.0-105.0); MEAN CORPUSCULAR HEMOGLOBIN 28.8 pg (25.0-35.0); MEAN CORPUSCULAR HGB CONC 32.2 g/dl (31.0-37.0); MEAN PLATELET VOLUME 8.6 fl (7.0-11.0); MONO # 0.7 (0.1-0.6); MONO % 5.9 % (1.0-6.0); RED CELL DISTRIBUTION WIDTH 13.2 % (11.5-14.5); WHITE BLOOD COUNT 11.6 10^3/ul (4.5-11.0)
[2016-12-14 08:17] LABS: ALB/GLOB RATIO 1.5 (1.1-1.8); ALKALINE PHOSPHATASE 82 U/L (38-126); ALT/SGPT 34 U/L (7-56); AST/SGOT 19 U/L (17-59); BILIRUBIN,TOTAL 0.7 mg/dL (0.2-1.3); BLOOD UREA NITROGEN 10 mg/dL (7-21); CALCIUM 10.2 mg/dL (8.4-10.5); CARBON DIOXIDE 28 mmol/L (21-33); CHLORIDE 102 mmol/L (95-110); GFR AFRICAN-AMERICAN > 60; GLUCOSE,RANDOM 123 mg/dL (70-110); LIPASE 67 U/L (23-300); MAGNESIUM 2.1 mg/dL (1.7-2.2); PHOSPHOROUS 3.1 mg/dL (2.5-4.5); POTASSIUM 3.9 mmol/L (3.6-5.0); SODIUM 144 mmol/L (132-148); TOTAL PROTEIN 7.9 g/dL (5.8-8.3)
[2016-12-14 09:02] VITALS: RESP 18
--- NOTE | 2016-12-14 11:39 | RAD ---
HISTORY: c/o n/v COMPARISON: No prior. FINDINGS: BOWEL: There is moderate amount of stool in the colon. The bowel gas pattern is nonspecific. BONES: Normal. OTHER FINDINGS: None. IMPRESSION: Nonspecific bowel gas pattern.
--- NOTE | 2016-12-14 11:39 | RAD ---
HISTORY: Shortness of breath COMPARISON: 11/12/2016. FINDINGS: LUNGS: The lungs are clear. PLEURA: No significant pleural effusion identified, no pneumothorax apparent. CARDIOVASCULAR: Normal. OSSEOUS STRUCTURES: No significant abnormalities. VISUALIZED UPPER ABDOMEN: Normal. OTHER FINDINGS: None. IMPRESSION: No active pulmonary disease.
[2016-12-14 11:51] VITALS: BP 123/68; PULSE 91; O2SAT 100
--- NOTE | 2016-12-14 15:05 | CARD ---
APPROVED REPORT EKG Measurement Heart [id number] HI [id number] <Conclusion> Normal sinus rhythm Normal ECG
== END 2016-12-14 12:44 | disposition home or self-care (01) ==
LOC: ED 07:08
DX: K29.70 Gastritis, unspecified, without bleeding (principal)
CPT/HCPCS: 71010; 74000; 80053; 83690; 83735; 84100; 85025; 93005; 96372; 96374; 96375; 99285; J2765; J3230

== ENCOUNTER 2017-07-03 05:13 | Emergency (ER) | payer MEDICAID, BC ==
[2017-07-03 05:27] VITALS: BP 132/81; PULSE 96; RESP 18; TEMP 98.1; O2SAT 99
--- NOTE | 2017-07-03 05:28 | ED PDOC ---
Arrival/HPI - General Chief Complaint: Back Pain Time Seen by Provider: 07/03/17 05:16 Historian: Patient - History of Present Illness Narrative History of Present Illness (Text): 07/03/17 05:30 51 year old male, whose past history includes gastric ulcers and chronic back pain from herniated discs, presents to the emergency department complaining of exacerbation of chronic lower back pain.Requesting a "shot" for his pain.. Patient is able to ambulate without any difficulty. Patient denies any history of recent trauma. Patient denies any fever, chills, chest pain, shortness of breath, nausea, vomiting, diarrhea, change in bowel/urinary habits, neck pain, headache, dizziness, or any other complaints. Symptom Onset: Gradual Symptom Course: Unchanged Activities at Onset: Light Context: Home Past Medical History - Provider Review Nursing Documentation Reviewed: Yes - Past History Past History: Non-Contributing - Infectious Disease Hx of Infectious Diseases: None - Past Medical History Past Medical History: No Previous - Cardiac Hx Cardiac Disorders: No - Pulmonary Hx Respiratory Disorders: No - Neurological Hx Neurological Disorder: No - HEENT Hx HEENT Disorder: No - Renal Hx Renal Disorder: No - Endocrine/Metabolic Hx Endocrine Disorders: No - Hematological/Oncological Hx Blood Disorders: No - Integumentary Hx Dermatological Disorder: No - Musculoskeletal/Rheumatological Hx Back Pain: Yes (chronic) Hx Falls: No - Gastrointestinal Hx Gastrointestinal Disorders: Yes - Genitourinary/Gynecological Hx Genitourinary Disorders: No - Psychiatric Hx Psychophysiologic Disorder: No Hx Substance Use: No - Surgical History Hx Orthopedic Surgery: Yes (Left hip surgery) - Anesthesia Hx Anesthesia Reactions: No Hx Malignant Hyperthermia: No Family/Social History - Physician Review Nursing Documentation Reviewed: Yes Family/Social History: No Known Family HX Smoking Status: Light Smoker < 10 Cigarettes Daily Hx Alcohol Use: No Hx Substance Use: No Allergies/Home Meds Allergies/Adverse Reactions: Allergies aspirin Allergy (Verified 11/12/16 20:04) ANAPHYLAXIS Home Medications: Home Meds Medication Instructions Recorded Confirmed oxyCODONE/Acetaminophen [Percocet 1 tab PO PRN PRN 11/12/16 07/03/17 5/325 mg Tab] Review of Systems - Physician Review All systems were reviewed & negative as marked: Yes - Review of Systems Constitutional: absent: Fevers, Other (Chills) Respiratory: absent: SOB Cardiovascular: absent: Chest Pain Gastrointestinal: absent: Diarrhea, Nausea, Vomiting Genitourinary Male: absent: Dysuria, Frequency, Hematuria Musculoskeletal: Back Pain. absent: Neck Pain Neurological: absent: Headache, Dizziness Physical Exam Vital Signs Reviewed: Yes Vital Signs Temp Pulse Resp BP Pulse Ox 07/03/17 05:26 98.1 F 96 H 18 132/81 99 Temperature: Afebrile Blood Pressure: Normal Pulse: Regular Respiratory Rate: Normal Appearance: Positive for: Well-Appearing, Non-Toxic, Comfortable Pain Distress: None Mental Status: Positive for: Alert and Oriented X 3 - Systems Exam Head: Present: Atraumatic, Normocephalic Pupils: Present: PERRL Extroacular Muscles: Present: EOMI Conjunctiva: Present: Normal Mouth: Present: Moist Mucous Membranes Neck: Present: Normal Range of Motion Respiratory/Chest: Present: Clear to Auscultation, Good Air Exchange. No: Respiratory Distress, Accessory Muscle Use Cardiovascular: Present: Regular Rate and Rhythm, Normal S1, S2. No: Murmurs Abdomen: No: Tenderness, Distention, Peritoneal Signs Back: Present: Pain with Leg Raise (Some discomfort with straight leg raise). No: Paraspinal Tenderness, Other ((-) Paralumbar tenderness) Upper Extremity: Present: Normal Inspection. No: Cyanosis, Edema Lower Extremity: Present: Normal Inspection. No: Edema Neurological: Present: GCS=15, CN II-XII Intact, Speech Normal, Motor Func Grossly Intact, Normal Sensory Function Skin: Present: Warm, Dry, Normal Color. No: Rashes Psychiatric: Present: Alert, Oriented x 3, Normal Insight, Normal Concentration Medical Decision Making ED Course and Treatment: 07/03/17 05:35 Impression: 51 year old male presents complaining of chronic lower back pain. Patient ran out of pain medications. Plan: -- Dilaudid -- Reassess and disposition Progress Notes: 07/03/17 05:50 On re-evaluation, patient feels better and is in no acute distress. I have discussed the results and plan with the patient, who expresses understanding. Patient in agreement with plan to be discharged home. Patient is stable for discharge. Patient was instructed to follow up with physician or return if symptoms worsen or new concerning symptoms arise. - Medication Orders Current Medication Orders: Discontinued Medications Hydromorphone HCl (Dilaudid) 1 mg SC STAT STA Stop: 07/03/17 05:44 Last Admin: 07/03/17 06:05 Dose: 1 mg MAR Pain Assessment Document 07/03/17 06:05 [facility] (Rec: 07/03/17 06:05 [id number] Pain Reassessment Is this a pain reassessment? No Sleep Is patient sleeping during reassessment? Yes Subcutaneous Administrations Document 07/03/17 06:05 LAC (Rec: 07/03/17 06:05 [id number] Injection Site MAR Injection Site Left Arm Charges for Administration # of Subcutaneous Administrations 2 - Scribe Statement The provider has reviewed the documentation as recorded by the Norahibmoira Desai Provider Scribe Attestation: All medical record entries made by the Scribe were at my direction and personally dictated by me. I have reviewed the chart and agree that the record accurately reflects my personal performance of the history, physical exam, medical decision making, and the department course for this patient. I have also personally directed, reviewed, and agree with the discharge instructions and disposition. Disposition/Present on Arrival - Present on Arrival Any Indicators Present on Arrival: No History of DVT/PE: No History of Uncontrolled Diabetes: No Urinary Catheter: No History of Decub. Ulcer: No History Surgical Site Infection Following: None - Disposition Have Diagnosis and Disposition been Completed?: Yes Diagnosis: Chronic back pain Disposition: HOME/ ROUTINE Disposition Time: 05:50 Patient Plan: Discharge Condition: GOOD Additional Instructions: Continue your endocet meds recently prescribed/follow up with your doctor this week Forms: [employer] (Pashto)
[2017-07-03] MEDS ORDERED: HYDROmorphone 0.5 mg/0.5 ml ISec SC STA (05:43)
== END 2017-07-03 06:10 | disposition home or self-care (01) ==
LOC: ED 05:13
DX: G89.29 Other chronic pain (principal); M54.5 Low back pain; F17.210 Nicotine dependence, cigarettes, uncomplicated
CPT/HCPCS: 96372; 99282; J1170

== ENCOUNTER 2017-08-26 00:55 | Emergency (ER) | payer BC, MEDICAID ==
[2017-08-26] MEDS ORDERED: HYDROmorphone 0.5 mg/0.5 ml ISec SC STA ×2 (01:06→01:14)
[2017-08-26 01:08] VITALS: BP 118/80; PULSE 94; RESP 18; TEMP 98.3
--- NOTE | 2017-08-26 01:29 | ED PDOC ---
Arrival/HPI - General Chief Complaint: Back Pain Time Seen by Provider: 08/26/17 00:56 Historian: Patient - History of Present Illness Narrative History of Present Illness (Text): 08/26/17 01:03 51 year old male, with past history of gastric ulcers and chronic back pain from herniated discs, presents to the emergency department complaining of exacerbation of chronic lower back pain tonight. Patient is able to ambulate without any difficulty but informs worsening pain for which requests a "shot". Patient denies any history of recent trauma or surgery. Patient denies any fever , chills, chest pain, shortness of breath, nausea, vomiting, diarrhea, abdominal pain, change in bowel/urinary habits, neck pain, headache, dizziness, or any other complaints. Patient presents to the Emergency department for medical evaluation. Time/Duration: 1-3 hours Symptom Onset: Gradual Symptom Course: Unchanged Quality: Aching Activities at Onset: Light Context: Home Past Medical History - Provider Review Nursing Documentation Reviewed: Yes - Past History Past History: Non-Contributing - Infectious Disease Hx of Infectious Diseases: None - Past Medical History Past Medical History: No Previous - Cardiac Hx Cardiac Disorders: No - Pulmonary Hx Respiratory Disorders: No - Neurological Hx Neurological Disorder: No - HEENT Hx HEENT Disorder: No - Renal Hx Renal Disorder: No - Endocrine/Metabolic Hx Endocrine Disorders: No - Hematological/Oncological Hx Blood Disorders: No - Integumentary Hx Dermatological Disorder: No - Musculoskeletal/Rheumatological Hx Back Pain: Yes (chronic) Hx Falls: No - Gastrointestinal Hx Gastrointestinal Disorders: Yes - Genitourinary/Gynecological Hx Genitourinary Disorders: No - Psychiatric Hx Psychophysiologic Disorder: No Hx Substance Use: No - Surgical History Hx Orthopedic Surgery: Yes (Left hip surgery) - Anesthesia Hx Anesthesia Reactions: No Hx Malignant Hyperthermia: No Family/Social History - Physician Review Nursing Documentation Reviewed: Yes Family/Social History: No Known Family HX Smoking Status: Light Smoker < 10 Cigarettes Daily Hx Alcohol Use: No Hx Substance Use: No Allergies/Home Meds Allergies/Adverse Reactions: Allergies aspirin Allergy (Verified 08/26/17 01:02) ANAPHYLAXIS Home Medications: Home Meds Medication Instructions Recorded Confirmed No Known Home Med 08/26/17 08/26/17 Review of Systems - Physician Review All systems were reviewed & negative as marked: Yes - Review of Systems Constitutional: Normal. absent: Fevers Eyes: Normal ENT: Normal Respiratory: Normal. absent: SOB Cardiovascular: Normal. absent: Chest Pain Gastrointestinal: Normal. absent: Abdominal Pain, Stool Changes, Diarrhea, Nausea, Vomiting Genitourinary Male: Normal. absent: Urinary Output Changes Musculoskeletal: Back Pain. absent: Neck Pain Skin: Normal Neurological: Normal Endocrine: Normal Hemo/Lymphatic: Normal Psychiatric: Normal Physical Exam Vital Signs Reviewed: Yes Vital Signs Temp Pulse Resp BP Pulse Ox 08/26/17 02:20 99 08/26/17 01:07 98.3 F 94 H 18 118/80 100 Temperature: Afebrile Blood Pressure: Normal Pulse: Tachycardic Respiratory Rate: Normal Appearance: Positive for: Well-Appearing, Non-Toxic, Comfortable Pain Distress: None Mental Status: Positive for: Alert and Oriented X 3 - Systems Exam Head: Present: Atraumatic, Normocephalic Pupils: Present: PERRL Extroacular Muscles: Present: EOMI Conjunctiva: Present: Normal Neck: Present: Normal Range of Motion Respiratory/Chest: Present: Clear to Auscultation, Good Air Exchange. No: Respiratory Distress, Accessory Muscle Use Cardiovascular: Present: Regular Rate and Rhythm, Normal S1, S2. No: Murmurs Abdomen: No: Tenderness, Distention, Peritoneal Signs Back: Present: Normal Inspection Upper Extremity: Present: Normal Inspection. No: Cyanosis, Edema Lower Extremity: Present: Normal Inspection. No: Edema Neurological: Present: GCS=15, CN II-XII Intact, Speech Normal Skin: Present: Warm, Dry, Normal Color. No: Rashes Psychiatric: Present: Alert, Oriented x 3, Normal Insight, Normal Concentration Medical Decision Making ED Course and Treatment: 08/26/17 01:03 Impression: 51 year old male presents to the Emergency department for chronic lower back pain. Differential Diagnosis included but are not limited to: chronic lower back pain Plan: -- Dilaudid -- Reassess and disposition Prior Visits: Notes and results from previous visits were reviewed. Progress Notes: - Medication Orders Current Medication Orders: Discontinued Medications Hydromorphone HCl (Dilaudid) 1 mg SC STAT STA Stop: 08/26/17 01:15 Last Admin: 08/26/17 01:28 Dose: 1 mg MAR Pain Assessment Document 08/26/17 01:28 [facility] (Rec: 08/26/17 01:29 [id number] Pain Reassessment Is this a pain reassessment? No Sleep Is patient sleeping during reassessment? No Presence of Pain Presence of Pain Yes Pain Scale Used Pain Scale Used Numeric Location Upper or Lower Lower Pain Location Body Site Back Description Description Chronic Intensity of Pain at present 10 Acceptable Level of Pain 0 Pain Behavior Irritability Aggravating Factors ADL's Subcutaneous Administrations Document 08/26/17 01:28 [facility] (Rec: 08/26/17 01:29 [id number] Injection Site MAR Injection Site Left Deltoid Charges for Administration # of Subcutaneous Administrations 1 - Scribe Statement The provider has reviewed the documentation as recorded by the Scribe Iliana Montes. All medical record entries made by the Scribe were at my direction and personally dictated by me. I have reviewed the chart and agree that the record accurately reflects my personal performance of the history, physical exam, medical decision making, and the department course for this patient. I have also personally directed, reviewed, and agree with the discharge instructions and disposition. Disposition/Present on Arrival - Present on Arrival Any Indicators Present on Arrival: No History of DVT/PE: No History of Uncontrolled Diabetes: No Urinary Catheter: No History of Decub. Ulcer: No History Surgical Site Infection Following: None - Disposition Have Diagnosis and Disposition been Completed?: Yes Diagnosis: Back pain Disposition: HOME/ ROUTINE Disposition Time: 02:20 Condition: IMPROVED Discharge Instructions (ExitCare): Low Back Pain (DC) Additional Instructions: implantable spinal cord stimulator Forms: [employer] (Faroese)
[2017-08-26 02:28] VITALS: O2SAT 99
== END 2017-08-26 02:20 | disposition home or self-care (01) ==
LOC: ED 00:55
DX: M54.5 Low back pain (principal); F17.210 Nicotine dependence, cigarettes, uncomplicated
CPT/HCPCS: 96372; 99282; J1170